=== PATIENT | female | born 1970 | race Two or more races ===

== ENCOUNTER 2020-06-29 11:05 | Outpatient (REF) | payer OTHER, SELFPAY ==
[2020-06-29 11:56] LABS: Hematocrit 40.4 % (37-47); Hemoglobin 13.6 g/dl (12.0-16.0); Mean Corpuscular HGB Conc 33.7 g/dl (31.0-35.0); Mean Corpuscular Hemoglobin 29.4 pg (27.0-33.0); Mean Corpuscular Volume 87.4 fL (80-98); Mean Platelet Volume 10.7 fL (9.4-12.3); Platelet Count 262 X10*3/uL (160-400); Red Blood Count 4.62 X10*6/uL (4.20-5.50); Red Cell Distribution Width 13.3 % (11.0-16.0); White Blood Count 5.1 X10*3/uL (4.8-10.8)
[2020-06-29 12:20] LABS: Alanine Aminotransferase 8 U/L (0-31); Albumin Level 4.2 g/dL (3.5-5.0); Alkaline Phosphatase 71 U/L (39-117); Anion Gap 10 (12-20); Aspartate Amino Transferase 9 U/L (5-31); Bilirubin Total 0.7 mg/dL (0.0-1.0); Blood Urea Nitrogen 13 mg/dL (9-16); Calcium 9.5 mg/dL (8.4-10.2); Carbon Dioxide 31 mmol/L (22-29); Chloride 102 mmol/L (96-108); Estimated Glomerular Filt Rate > 60; Glucose Random 97 mg/dL (60-115); Potassium 4.2 mmol/l (3.3-5.1); Sodium 139 mmol/L (135-145); Total Protein 7.1 g/dL (6.5-8.0)
== END 2020-06-29 11:06 | disposition home or self-care (01) ==
LOC: HO.LAB 11:05
PROVIDERS: PCP Family Medicine; Visit Provider Nurse Practitioner Family
DX: Z12.11 Encounter for screening for malignant neoplasm of colon (principal)
CPT/HCPCS: 36415; 80053; 85027

== ENCOUNTER 2020-07-15 09:23 | Day surgery (SDC) | payer OTHER, SELFPAY ==
--- NOTE | 2020-07-14 13:49 | P.CONAN_ITS ---
Documented by User: Carley Box 07/14/20 13:53 HPI - Anesthesia Eval Consult details Narrative: 50yo F for Colonoscopy [facility] Past Medical History Medical History Epilepsy Migraine Family History Family History Father History of stroke History of diabetes mellitus Mother History of asthma Surgical History Surgical History History of arthroscopy of right shoulder Social History Social History Alcohol intake: never Smoking Status: Never smoker Use of substances other than those prescribed or required for medical reasons: No Substance Use Type: Marijuana Advance Directives: No Advance Directives Information Provided: Yes Meds Allergies Allergy/AdvReac Type Severity Reaction Status Date / Time No Known Allergies Allergy Verified 07/09/20 13:43 Home Medications Medication Instructions Recorded Confirmed Type sumatriptan succinate 25 mg tablet 25 mg PO DAILY PRN tab 05/24/20 07/09/20 History propranolol 1 tab PO BID 07/09/20 07/09/20 History sertraline 1 tab PO DAILY 07/09/20 07/09/20 History Exam Exam Date and Time: July 14, 2020 1349 Pertinent Lab Results Pertinent Lab Results: Laboratory Tests 06/29/20 06/29/20 11:20 11:20 WBC 5.1 Hgb 13.6 Hct 40.4 Plt Count 262 Sodium 139 Potassium 4.2 Chloride 102 Carbon Dioxide 31 H BUN 13 Creatinine 0.76 Assessment and Plan Assessment Anesthesia Assessment: Chart Reviewed Documented by User: Marci Alicia 07/15/20 10:34 [facility] Past Medical History Medical History Epilepsy Migraine Family History Family History Father History of stroke History of diabetes mellitus Mother History of asthma Surgical History Surgical History History of arthroscopy of right shoulder Social History Social History Alcohol intake: never Smoking Status: Never smoker Use of substances other than those prescribed or required for medical reasons: No Substance Use Type: Marijuana Advance Directives: No Advance Directives Information Provided: Yes Meds Allergies Allergy/AdvReac Type Severity Reaction Status Date / Time No Known Allergies Allergy Verified 07/09/20 13:43 Home Medications Medication Instructions Recorded Confirmed Type sumatriptan succinate 25 mg tablet 25 mg PO DAILY PRN tab 05/24/20 07/09/20 History propranolol 1 tab PO BID 07/09/20 07/09/20 History sertraline 1 tab PO DAILY 07/09/20 07/09/20 History Exam Airway Mallampati Class: II TM Dist: >3cm Neck ROM: Full Loose/Missing/Broken Teeth: No Heart: RRR Lungs: CTA Assessment and Plan Assessment Anesthesia Assessment: Anesthesia Plan Discussed and Chart Reviewed Final Anesthetic Review NPO: Yes ASA Class: II Final Preanesthetic Review: Meds/Allgs Chart Reviewed, Consent Obtained/Reviewed and Anes Risks/Benef Reviewed Patient Risk: Low Procedure Risk: Low Anesthetic Plan Anesthetic Plan: MAC: Disposition: Standard PACU
[2020-07-15 09:51] VITALS: BP 94/54; PULSE 80; RESP 16; TEMP 36.5; O2SAT 99; BMI 27.1
[2020-07-15] MEDS: Lactated Ringers 1,000 ML 100 ML IVCONT (10:04)
--- NOTE | 2020-07-15 10:23 | MHC.SHP ---
Pre-Procedural Eval Section A The patient is an INPATIENT: No Section B Chief Complaint: Screening Details of Present Illness: Colon cancer screening, Mother hx of colon polyps. Relevant Family History (Specify if Yes): Yes Relevant Social History: None Present Medications: see Short Stay Collaborative assessment Medical History: Significant History (seizure, Migraine) History of Previous Operations: No relevant previous surgery Allergies: Allergies Allergy/AdvReac Type Severity Reaction Status Date / Time No Known Allergies Allergy Verified 07/09/20 13:43 Review of Systems Sugical H&P ROS: Negative: Constitution, Cardiovascular, Respiratory and Gastrointestinal Exam Surgical H&P Exam: Normal: HEENT, Normal: Heart, Normal: Lungs, Normal: Extremities and Normal: Abdomen Exam Comment: No changes since preop H&P Plan Diagnosis/Plan: Unchanged I have reviewed the history and physical and performed a pertinent physical examination on my patient. No changes have occurred unless specified. yes
--- NOTE | 2020-07-15 10:35 | HO.ANESPROP2 ---
FORMERLY [facility], LATER [facility] Past Medical History Medical History Epilepsy Migraine Family History Family History Father History of stroke History of diabetes mellitus Mother History of asthma Surgical History Surgical History History of arthroscopy of right shoulder Social History Social History Alcohol intake: never Smoking Status: Never smoker Use of substances other than those prescribed or required for medical reasons: No Substance Use Type: Marijuana Advance Directives: No Advance Directives Information Provided: Yes Meds Allergies Allergy/AdvReac Type Severity Reaction Status Date / Time No Known Allergies Allergy Verified 07/09/20 13:43 Home Medications Medication Instructions Recorded Confirmed Type sumatriptan succinate 25 mg tablet 25 mg PO DAILY PRN tab 05/24/20 07/09/20 History propranolol 1 tab PO BID 07/09/20 07/09/20 History sertraline 1 tab PO DAILY 07/09/20 07/09/20 History Exam Exam Date and Time: July 15, 2020 1035 Height,Weight and Vital Signs: Height 5 ft 3 in Weight 69.4 kg Last Vital Signs Temp 97.7 F 07/15/20 09:51 Pulse 80 07/15/20 09:51 Resp 16 07/15/20 09:51 BP 94/54 L 07/15/20 09:51 Pulse Ox 99 07/15/20 09:51
[2020-07-15 11:05] VITALS: BP 89/50; PULSE 77; RESP 18; TEMP 36.6; O2SAT 95
[2020-07-15 11:06] VITALS: BP 88/56
[2020-07-15 11:11] VITALS: BP 97/60
[2020-07-15 11:20] VITALS: BP 97/60; PULSE 66; RESP 18; O2SAT 98
[2020-07-15 11:35] VITALS: BP 103/62; PULSE 76; RESP 18; O2SAT 97
--- NOTE | 2020-07-15 12:32 | HO.POSTANES ---
Post Anesthesia Evaluation Post Anesthesia Evaluation Vital Signs: Vital Signs Temp Pulse Resp BP Pulse Ox 07/15/20 11:35 76 18 103/62 97 07/15/20 11:20 66 18 97/60 98 07/15/20 11:11 97/60 07/15/20 11:06 88/56 L 07/15/20 11:05 97.8 F 77 18 89/50 L 95 07/15/20 09:51 97.7 F 80 16 94/54 L 99 Anesthesia: Monitored Mental Status: Awake Pain Control: Satisfactory Nausea/Vomiting: None Hydration: Adequate Anesthesia-Related Issues: No Anes. Related Issues
--- NOTE | 2020-07-15 18:21 | OP_ITS ---
SURGEON: Nelly Plasencia MD PREOPERATIVE DIAGNOSIS: Colon cancer screening. POSTOPERATIVE DIAGNOSIS: PROCEDURE PERFORMED: Colonoscopy with excisional polypectomy. ESTIMATED BLOOD LOSS: Less than 5 mL. COMPLICATIONS: No complications. ANESTHESIA: Monitored. ANESTHESIOLOGIST: Dr. Alicia ASSISTANTS: No sales assistant. SPECIMENS: Specimen removed; polyp at 60 cm. The patient is a 50-year-old female, who is presented for colon cancer screening, [id number]. PRIMARY CARE PROVIDER: Not listed at the moment of dictation. POSTOPERATIVE DIAGNOSES: Colonic polyp, internal hemorrhoids 0 to 1+. BUILDING GUARD DEPUTY SHERIFF: Dr. Plasencia. CONDITION: Postprocedure, stable. FINDINGS: Digital rectal exam revealed no specific changes. Video colonoscope was introduced without difficulty. It was navigated into the rectosigmoid area. Prep was good. There was residual fluid, which required some increased suctioning and flushing. I switched off and on with air versus CO2 insufflation to get adequate distention. The patient is petite and her colon is somewhat convoluted due to the compactness of her abdomen. I did successfully get to the cecum. Appendiceal orifice was seen. There was a polyp identified on the way in at 60 cm and this was removed at that time and submitted as the only specimen on withdrawal. Good rotational views. No additional lesions seen. Anorectal verge was clear. PLAN: I spoke to the patient after the procedure, explained that she will be on a 5-year recall. Endoscopically, this is a tubular adenoma. I explained the evolution of colon cancer as best we know it in the majority of individuals from diminutive polyp, smaller polyp, then larger polyps with potenttial for change into colon cancer. She understood this. She will be seen in followup if she has any further questions. GRAFT OR IMPLANTS: No grafts or implants. Nelly Plasencia MD MEN/MODL / [id number] PADMINI
== END 2020-07-15 12:32 | disposition home or self-care (01) ==
PROVIDERS: PCP Family Medicine; Visit Provider Internal Medicine Gastroenterology
PROC: 0DJD8ZZ Inspection of Lower Intestinal Tract, Via Natural or Artificial Opening Endoscopic (ICD-10-PCS; CPT 45378; principal; 2020-07-15 10:30)
DX: Z12.11 Encounter for screening for malignant neoplasm of colon (principal); D12.6 Benign neoplasm of colon, unspecified; K64.8 Other hemorrhoids
CPT/HCPCS: 45380; 88305

== ENCOUNTER → 2020-07-29 14:16 | Outpatient (BNVA) | payer OTHER, SELFPAY | PROVIDERS: PCP Family Medicine; Visit Provider Nurse Practitioner Family | DX: Z76.89 Persons encountering health services in other specified circumstances (principal) ==

== ENCOUNTER → 2020-09-29 15:52 | Outpatient (BNVA) | payer OTHER, SELFPAY | PROVIDERS: Visit Provider Obstetrics & Gynecology ==

== ENCOUNTER 2020-10-04 16:23 | Outpatient (REF) | payer OTHER, SELFPAY ==
[2020-10-06 09:47] LABS: C. trachomatis RNA TMA NOT DETECTED (NOT DETECTED); N. gonorrhoeae RNA TMA NOT DETECTED (NOT DETECTED)
[2020-10-07 19:12] LABS: HPV mRNA E6/E7 rflx Not Detected (Not Detected)
== END 2020-10-04 16:24 | disposition home or self-care (01) ==
LOC: HO.LAB 16:23
PROVIDERS: Visit Provider Obstetrics & Gynecology
DX: Z12.4 Encounter for screening for malignant neoplasm of cervix (principal); Z11.51 Encounter for screening for human papillomavirus (HPV); Z11.3 Encounter for screening for infections with a predominantly sexual mode of transmission; Z20.2 Contact with and (suspected) exposure to infections with a predominantly sexual mode of transmission
CPT/HCPCS: 36415; 87491; 87591; 87624; 88142; J7298

== ENCOUNTER 2020-10-11 13:35 | Outpatient (REF) | payer OTHER, SELFPAY ==
--- NOTE | ~2020-10-11 | US_ITS ---
EXAMINATION: ULTRASOUND PELVIS COMPLETE CLINICAL INFORMATION: Pelvic plane with bleeding. COMPARISON: None TECHNIQUE: Transabdominal and transvaginal imaging of the pelvis was performed. FINDINGS: The uterus is retroverted measuring 6.8 cm in length, 4.1 cm in AP and 4.9 cm in transverse dimension. There is an IUD slightly low-lying within the endometrial canal. No focal lesion seen. There are multiple anechoic nabothian cysts seen in the cervix. Right ovary measures 2.37 x 1.07 x 1.45 cm and volume 1.93 mL. No focal lesion seen. Previously it measured 2.6 x 1.0 x 1.6 cm and volume 2.2 mL. The left ovary measures 2.05 x 1.42 x 1.55 cm and volume 2.36 mL. Previously left ovary measured 2.3 x 1.7 x 2.6 cm and volume 5.5 mL. There is no free fluid in the cul-de-sac. US/US transvaginal IMPRESSION: 1. Slightly low-lying IUD within the uterus. 2. Simple nabothian cysts in the cervix. 3. Ovaries are unremarkable.
--- NOTE | ~2020-10-11 | US_ITS ---
EXAMINATION: ULTRASOUND PELVIS COMPLETE CLINICAL INFORMATION: Pelvic plane with bleeding. COMPARISON: None TECHNIQUE: Transabdominal and transvaginal imaging of the pelvis was performed. FINDINGS: The uterus is retroverted measuring 6.8 cm in length, 4.1 cm in AP and 4.9 cm in transverse dimension. There is an IUD slightly low-lying within the endometrial canal. No focal lesion seen. There are multiple anechoic nabothian cysts seen in the cervix. Right ovary measures 2.37 x 1.07 x 1.45 cm and volume 1.93 mL. No focal lesion seen. Previously it measured 2.6 x 1.0 x 1.6 cm and volume 2.2 mL. The left ovary measures 2.05 x 1.42 x 1.55 cm and volume 2.36 mL. Previously left ovary measured 2.3 x 1.7 x 2.6 cm and volume 5.5 mL. There is no free fluid in the cul-de-sac. US/US pelvic complete IMPRESSION: 1. Slightly low-lying IUD within the uterus. 2. Simple nabothian cysts in the cervix. 3. Ovaries are unremarkable.
== END 2020-10-11 13:36 | disposition home or self-care (01) ==
LOC: HO.US 13:35
PROVIDERS: PCP Internal Medicine; Visit Provider Obstetrics & Gynecology
DX: R10.2 Pelvic and perineal pain (principal); N88.8 Other specified noninflammatory disorders of cervix uteri; Z97.5 Presence of (intrauterine) contraceptive device
CPT/HCPCS: 76830; 76856

== ENCOUNTER → 2020-10-19 12:05 | Outpatient (BNVA) | payer OTHER, SELFPAY | PROVIDERS: PCP Internal Medicine; Visit Provider Obstetrics & Gynecology ==

== ENCOUNTER 2021-04-18 11:51 | Outpatient (REF) | payer OTHER, SELFPAY ==
[2021-04-18 12:06] VITALS: BP 105/66; PULSE 79; RESP 16; TEMP 36.7; O2SAT 99
[2021-04-18 12:07] VITALS: BMI 28.3
[2021-04-18 13:32] VITALS: BP 114/69; PULSE 71; RESP 16; O2SAT 97
== END 2021-04-18 11:52 | disposition home or self-care (01) ==
LOC: HO.MS 11:51
PROVIDERS: PCP Family Medicine; Visit Provider Ophthalmology
PROC: (CPT 67801; principal; 2021-04-18 16:00)
DX: H00.11 Chalazion right upper eyelid (principal); H00.14 Chalazion left upper eyelid; Z79.899 Other long term (current) drug therapy
CPT/HCPCS: 67801; 67800

== ENCOUNTER 2022-09-02 07:14 | Outpatient (REF) | payer OTHER, SELFPAY ==
[2022-09-02 08:00] LABS: Appearance Urine Clear; Color Urine Yellow; Glucose Urine UA Negative (Negative); Leukocyte Esterase Urine Negative (Negative); Nitrite Urine Negative (Negative); PH 5.5 (5.0-9.0); Specific Gravity - Urine 1.025 (1.005-1.025); UMIC TRIGGER UA YES; Urine Blood Trace (Negative); Urine Ketones Negative (Negative); Urine Protein Negative (Neg-Trace)
[2022-09-02 08:16] LABS: Bacteria Urine None Seen (None Seen); Hyaline Casts Urine 0-2 /LPF (0-2); RBC Urine 0-2 /HPF (0-2); Squamous Epithelial Cell Urine 0-2 /HPF (0-2); WBC Urine 0-5 /HPF (0-5)
[2022-09-02 08:39] LABS: Alanine Aminotransferase 6 U/L (0-31); Albumin Level 4.1 g/dL (3.5-5.0); Alkaline Phosphatase 78 U/L (39-117); Anion Gap 14 (12-20); Aspartate Amino Transferase 9 U/L (5-31); Bilirubin Total 0.7 mg/dL (0.0-1.0); Blood Urea Nitrogen 14 mg/dL (9-16); Calcium 9.2 mg/dL (8.4-10.2); Carbon Dioxide 24 mmol/L (22-29); Chloride 106 mmol/L (96-108); Cholesterol 180 mg/dL; Estimated Glomerular Filt Rate > 60; Glucose Fasting 96 mg/dL (60-99); HDL Cholesterol 34 mg/dL; LDL Cholesterol Calculated 129 mg/dl; Potassium 4.1 mmol/L (3.3-5.1); Sodium 140 mmol/L (135-145); Total Protein 6.6 g/dL (6.5-8.0); Triglycerides 86 mg/dL
[2022-09-02 08:55] LABS: TSH reflex Free T4 1.71 uIU/mL (0.32-4.0)
== END 2022-09-02 07:15 | disposition home or self-care (01) ==
LOC: HO.LAB 07:14
PROVIDERS: PCP Family Medicine; Visit Provider Family Medicine
DX: Z00.00 Encounter for general adult medical examination without abnormal findings (principal)
CPT/HCPCS: 36415; 80053; 80061; 81001; 81003; 84443

== ENCOUNTER 2023-04-09 14:29 | Outpatient (AMB) | payer OTHER, SELFPAY ==
[2023-04-09 14:35] VITALS: BP 110/58; PULSE 78; O2SAT 98; BMI 26.6
--- NOTE | 2023-04-09 14:35 | MHC.PC.OV ---
Vital Signs 04/09/23 14:35 Height 5 ft 3 in Weight 150 lb BMI 26.6 BP 110/58 L Blood Pressure Location Lt brachial Position Sitting Pulse 78 Pulse Source Pulse Oximeter Pulse Oximetry (%) 98 Oxygen Delivery Method Room Air Intake Visit Reasons: f/u low hdl, cholesterol levels & chronic condit. Intake Note: Patient is following up on cholesterol. pain in right arm from anticubital area down. She states it's been bothering her since November. She states she has a hard time remembering things, and focusing on things. Allergies No Known Allergies Allergy (Verified 04/09/23 14:38) Tobacco use date assessed: 04/09/23 Dental Screening Dental Screen Date: 04/09/23 Did you have a dental visit in the last 12 months?: Yes Did you have a dental problem in the last 6 months where you did not have access to dental care?: No Was dental information given to patient?: Patient has dentist HPI f/u low hdl, cholesterol levels & chronic condit. HPI Details 52 y/o female presents to f/u lipids and chronic conditions. No recent lipid panel to review. She has not made an appt. with Sleep Medicine yet. Pt reports ongoing R forearm pain since November. Pt reports memory changes. [facility] Medical History Tubular adenoma Epilepsy Migraine Surgical History History of arthroscopy of right shoulder Family History Father History of stroke History of diabetes mellitus Mother History of asthma HTN (hypertension) Osteoarthritis Sister Vestibular vertigo Sister Vertigo, central Son No problems noted. Son No problems noted. Daughter No problems noted. Social History Housing: House Alcohol intake: never Patient Tobacco Use Status: Never used Tobacco e-Cigarette/Vaping Use: Never Used Substance Use Type: Marijuana service: No Current occupational status: employed Cognitive needs: No Hearing needs: No Vision needs: No Female Reproductive History Menstrual Age of Menarche: 13 Questionnaire Thrive Questionnaire Date Thrive assessed: 08/31/22 KIMBERLY-7 AMB Questionnaire KIMBERLY-7 Date KIMBERLY - 7 assessed: 08/31/22 Source: Developed by Drs. Siva Alcantar, Cecilia Llanes, Isra Beck and colleagues, with an educational susan from [employer]. Review of Systems Const Denies chills, Denies fatigue, Denies fever(s), Denies headache(s) and Denies weakness ENT Denies dizziness and Denies headache(s) Card Denies dyspnea Resp Denies cough, Denies dyspnea, Denies wheezing and Denies other (shortness of breath) Musc Details: R forearm pain Denies numbness and Denies tingling Neuro Denies dizziness, Denies headache(s), Denies numbness, Denies tingling and Denies weakness Psych Details: Memory changes Denies anxiety and Denies depression Endo Denies fatigue Aller/Immun Denies wheezing Physical exam (Primary Care) Vital Signs: Last Vital Signs Pulse 78 04/09/23 14:35 BP 110/58 L 04/09/23 14:35 Pulse Ox 98 04/09/23 14:35 Oxygen Delivery Method Room Air 04/09/23 14:35 BMI result Body Mass Index 26.6 Tobacco/Smoking Status: Tobacco use Status Tobacco use date assessed 04/09/23 04/09/23 14:42 Patient Tobacco Use Status Never used Tobacco 04/09/23 14:42 e-Cigarette/Vaping Use Never Used 04/09/23 14:42 Thrive Assessment: Date of Thrive Assessment Date Thrive assessed 08/31/22 04/09/23 14:42 Const General: well developed; No acute distress Nutritional Appearance: well nourished Orientation/consciousness: patient oriented x3 [facility] Head: Yes normocephalic and Yes atraumatic Eyes General: appearance normal, both eyes and all related structures Pupils: Equal, round and reactive pupils present EOM: EOMs intact bilaterally Resp Effort & Inspection: normal respiratory effort Neuro General: patient oriented x3 and gait normal Cranial nerves: Yes Equal, round and reactive pupils present Psych Affect: normal affect Assessment and Plan Assessment & Plan (1) Wrist pain: Code(s): M25.539 - Pain in unspecified wrist Plan: Right hand wrist and thumb pain Continue ice/heat She is using ibuprofen 400 mg twice a day and I encouraged her to increase this to 400 mg 3 times a day Referred back to ortho Check x-rays (2) Right forearm pain: Code(s): M79.631 - Pain in right forearm Plan: Right forearm and elbow pain Check x-ray NSAIDs as above (3) Fatigue: Code(s): R53.83 - Other fatigue Plan: Improved She has declined referral to Sleep Medicine (4) Hypersomnia: Code(s): G47.10 - Hypersomnia, unspecified Plan: Patient says this has improved with improved sleep (5) Memory changes: Code(s): R41.3 - Other amnesia Plan: Memory changes and difficulty with focus I'll refer her to neuropsych Reiterated that poor sleep may be affecting her memory and focus. Patient does not feel that her sleep issues are a problem at this time. (6) Low HDL (under 40): Code(s): E78.6 - Lipoprotein deficiency Plan: Following her cholesterol levels. She will get these drawn in the next week or so and we will follow-up by telemedicine in a couple of weeks Orders: Orders XR elbow RT min 3V Today M79.631 - Pain in right forearm XR hand RT 2V Today M79.641 - Pain in right hand Coding Level of Care Code Est Pt Level 4 (25155) Diagnoses Wrist pain M25.539 Right forearm pain M79.631 Fatigue R53.83 Hypersomnia G47.10 Memory changes R41.3 Low HDL (under 40) E78.6
== END 2023-04-09 15:06 | disposition home or self-care (01) ==
PROVIDERS: PCP Family Medicine; Visit Provider Family Medicine
DX: M25.539 Pain in unspecified wrist (principal); M79.631 Pain in right forearm; R53.83 Other fatigue; G47.10 Hypersomnia, unspecified; R41.3 Other amnesia; E78.6 Lipoprotein deficiency
CPT/HCPCS: 99214

== ENCOUNTER 2023-04-21 07:45 | Outpatient (REF) | payer OTHER, SELFPAY ==
--- NOTE | ~2023-04-21 | XR_ITS ---
EXAMINATION: XR ELBOW, RIGHT CLINICAL INFORMATION: Pain COMPARISON: None available. TECHNIQUE: AP, lateral, and oblique views of the right elbow. FINDINGS: No acute visible fracture or dislocation. Joint spaces and alignment are maintained. No large elbow joint effusion. Soft tissues are unremarkable. XR/XR elbow RT min 3V IMPRESSION: No acute visible fracture or dislocation.
--- NOTE | ~2023-04-21 | XR_ITS ---
EXAMINATION: XR HAND, RIGHT CLINICAL INFORMATION: Pain right hand COMPARISON: None available. TECHNIQUE: PA, lateral, and oblique views of the right hand. FINDINGS: No acute visible fracture or dislocation. Slight negative ulnar variance. Joint spaces and alignment are maintained. Soft tissues are unremarkable. XR/XR hand RT 2V IMPRESSION: 1. No acute visible fracture or dislocation. 2. Slight negative ulnar variance.
[2023-04-21 09:24] LABS: Alanine Aminotransferase 5 U/L (0-31); Albumin Level 4.1 g/dL (3.5-5.0); Alkaline Phosphatase 68 U/L (39-117); Anion Gap 15 (12-20); Aspartate Amino Transferase 10 U/L (5-31); Bilirubin Total 0.8 mg/dL (0.0-1.0); Blood Urea Nitrogen 7 mg/dL (9-16); Calcium 9.1 mg/dL (8.4-10.2); Carbon Dioxide 24 mmol/L (22-29); Chloride 106 mmol/L (96-108); Cholesterol 179 mg/dL (<200); Estimated Glomerular Filt Rate > 60; Glucose Fasting 90 mg/dL (60-99); HDL Cholesterol 41 mg/dL (>40); LDL Cholesterol Calculated 126 mg/dL (<100); Potassium 3.9 mmol/L (3.3-5.1); Sodium 141 mmol/L (135-145); Triglycerides 64 mg/dL (<150)
== END 2023-04-21 07:46 | disposition home or self-care (01) ==
LOC: HO.LAB 07:45
PROVIDERS: PCP Family Medicine; Visit Provider Family Medicine
DX: Z00.00 Encounter for general adult medical examination without abnormal findings (principal); M79.641 Pain in right hand; M79.631 Pain in right forearm; E78.6 Lipoprotein deficiency
CPT/HCPCS: 36415; 73080; 73120; 80053; 80061

== ENCOUNTER 2023-04-30 13:36 | Outpatient (AMB) | payer OTHER, SELFPAY ==
--- NOTE | 2023-04-30 13:32 | A.OFFPC_ITS ---
Intake Visit Reasons: f/u labs Intake Note: Patient is following up on her lab work today. Allergies No Known Allergies Allergy (Verified 04/30/23 13:33) Tobacco use date assessed: 04/30/23 Dental Screening Dental Screen Date: 04/30/23 Did you have a dental visit in the last 12 months?: Yes Did you have a dental problem in the last 6 months where you did not have access to dental care?: No Was dental information given to patient?: Patient has dentist HPI f/u labs HPI Details Telemedicine?encounter?to?follow-up?labs,?x-rays?of?hands?and?wrists?for?bilater al?arm?pain, and?follow-up?of?memory?changes. Lab?work?is?all?okay.??Lipids?are?within?normal?limits. Still?has?wrist?forearm?and?elbow?pain?bilaterally.??X-rays?are?unremarkable.??S he?has?an?appointment?with?Ortho?coming?up.??Offe red?occupational?therapy?but?patient?would?like?to?see?ortho?1st. Ongoing?memory?changes.??She?has?had?some?issue?with?fatigue?and?declined?sleep? medicine?referral.??Lab?work?unremarkable.??Has?not?h ad?CBC?or?iron?studies?and?would?like?these. [facility] Medical History Tubular adenoma Epilepsy Migraine Surgical History History of arthroscopy of right shoulder Family History Father History of stroke History of diabetes mellitus Mother History of asthma HTN (hypertension) Osteoarthritis Sister Vestibular vertigo Sister Vertigo, central Son No problems noted. Son No problems noted. Daughter No problems noted. Social History Housing: House Alcohol intake: never Patient Tobacco Use Status: Never used Tobacco e-Cigarette/Vaping Use: Never Used Substance Use Type: Marijuana service: No Current occupational status: employed Cognitive needs: No Hearing needs: No Vision needs: No Female Reproductive History Menstrual Age of Menarche: 13 Questionnaire Thrive Questionnaire Date Thrive assessed: 08/31/22 KIMBERLY-7 AMB Questionnaire KIMBERLY-7 Date KIMBERLY - 7 assessed: 08/31/22 Source: Developed by Drs. Siva Alcantar, Cecilia Llanes, Isra Beck and colleagues, with an educational susan from [employer]. Review of Systems Const Denies chills, Denies fatigue, Denies fever(s), Denies headache(s) and Denies weakness ENT Denies dizziness and Denies headache(s) Card Denies chest pain, Denies lightheadedness, Denies dyspnea and Denies other (Palpitations) Resp Denies cough, Denies dyspnea, Denies wheezing and Denies other ( shortness of breath) Musc Details: Bilateral?for?pain Denies numbness Neuro Denies dizziness, Denies headache(s), Denies numbness, Denies paresthesias and Denies weakness Psych Denies anxiety and Denies depression Endo Denies fatigue Aller/Immun Denies wheezing Physical exam (Primary Care) Tobacco/Smoking Status: Tobacco use Status Tobacco use date assessed 04/30/23 04/30/23 13:35 Patient Tobacco Use Status Never used Tobacco 04/30/23 13:35 e-Cigarette/Vaping Use Never Used 04/30/23 13:35 Thrive Assessment: Date of Thrive Assessment Date Thrive assessed 08/31/22 04/30/23 13:35 Const Other: Telemedicine?encounter.??Audio?only.??No?exam. Telehealth Telehealth Location of provider rendering services: practice address Location of patient: other Patient Identification confirmed using: Name, : Yes Telehealth method: voice only Patient verbally consented to treatment: Yes Patient verbally consented to billing insurance company: Yes Patient informed of any privacy concerns related to visit: Yes Minutes spent on Phone/Video with Pt.: 8 Assessment and Plan Assessment & Plan (1) Fatigue: Code(s): R53.83 - Other fatigue Plan: Patient?declines?sleep?medicine She requests checking CBC & Iron. Ordered. (2) Forearm tendonitis: Code(s): M77.8 - Other enthesopathies, not elsewhere classified Plan: f/u ortho (3) Memory changes: Code(s): R41.3 - Other amnesia Plan: Ongoing?memory?ch anges.??She?has?been?referred?to?neuropsychiatry?at?[facility].??I?gave?her?the?number? so?she?can?call?them?today. Will?also?ask?our?office?to?check?on?status. (4) Low HDL (under 40): Code(s): E78.6 - Lipoprotein deficiency Plan: HDL?is?within?normal?limits Orders: Orders Lipid Panel 2 Months Z00.00 - Encounter for general adult medical examination without abnormal findings Microalbumin, Random (w Creat) 2 Months I10 - Essential (primary) hypertension TSH reflex Free T4 2 Months Z00.00 - Encounter for general adult medical examin ation without abnormal findings UA and rflx microscopic 2 Months Z00.00 - Encounter for general adult medical examination without abnormal findings Complete Blood Count Auto Diff Today R53.83 - Other fatigue, Z00.00 - Encounter for general adult medical examination without abnormal findings IRON PROFILE Today R53.83 - Other fatigue Vitamin B12 and Folate Today E53.8 - Deficiency of other specified B group vitamins, R53.83 - Other fatigue TSH reflex Free T4 Today R53.83 - Other fatigue, Z00.00 - Encounter for general adult medical examination without abnormal findings Comprehensive Brothers. Panel Fast 2 Months Z00.00 - Encounter for general adult medical examination without abnormal findings Complete Blood Count Auto Diff 2 Months Z00.00 - Encounter for general adult medical examination without abnormal findings Coding Level of Care Code Tele Est Pt Level 2 (87801) Diagnoses Fatigue R53.83 Forearm tendonitis M77.8 Memory changes R41.3 Low HDL (under 40) E78.6
== END 2023-04-30 14:00 | disposition home or self-care (01) ==
LOC: HO.HMGFM 13:36
PROVIDERS: PCP Family Medicine; Visit Provider Family Medicine
DX: R53.83 Other fatigue (principal); M77.8 Other enthesopathies, not elsewhere classified; R41.3 Other amnesia; E78.6 Lipoprotein deficiency; Z82.0 Family history of epilepsy and other diseases of the nervous system
CPT/HCPCS: 99212

== ENCOUNTER 2023-09-28 09:19 | Outpatient (AMB) | payer OTHER, SELFPAY ==
[2023-09-28 09:35] VITALS: BP 101/60; PULSE 79; RESP 12; TEMP 36.7; O2SAT 99; BMI 26.6
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
== END 2023-09-28 10:04 | disposition home or self-care (01) ==
PROVIDERS: PCP Family Medicine; Visit Provider Nurse Practitioner Family
DX: M79.2 Neuralgia and neuritis, unspecified (principal)
CPT/HCPCS: 99215

== ENCOUNTER 2023-10-29 19:23 | Outpatient (REF) | payer OTHER, SELFPAY ==
--- NOTE | ~2023-10-29 | MR_ITS ---
EXAMINATION: MR CERVICAL SPINE WITHOUT CONTRAST CLINICAL INFORMATION: Neuralgia and neuritis. COMPARISON: No relevant prior imaging. TECHNIQUE: MRI of the cervical spine was obtained using routine sequences without contrast. FINDINGS: There is nonspecific reversal of the cervical lordosis. Alignment is otherwise normal. Vertebral body heights are preserved. There are type I degenerative endplate changes at C5-C6. There is loss of intervertebral disc height and T2 signal intensity at multiple levels related to disc degeneration. There is no canal compromise or cord compression. No abnormal intramedullary signal changes. The cervicomedullary junction is normal. Limited visualization of the intracranial anatomy reveals no abnormal finding. Occipital condyles and lateral C1 masses are intact. The atlantodental joint and both C1-C2 articular facets are unremarkable. At C2-C3 the annular contour is normal. No canal or neuroforaminal compromise. At C3-C4 there is a bulging disc. No canal stenosis. Uncovertebral joint spurring causes mild right neuroforaminal encroachment. At C4-C5 there is a bulging disc. No canal stenosis. Uncovertebral joint spurring and facet degenerative change causes mild bilateral neuroforaminal encroachment. At C5-C6 there is a bulging disc. No canal stenosis. Uncovertebral joint spurring and facet degenerative change causes severe right and moderate left neuroforaminal encroachment. At C6-C7 there is a bulging disc. No canal stenosis. Uncovertebral joint spurring and facet degenerative change causes mild right neuroforaminal encroachment. At C7-T1 the annular contour is normal. No canal or neuroforaminal compromise. Visualized soft tissues of the neck are normal. Vascular flow voids are grossly maintained. MR/MR cervical spine wo con IMPRESSION: There is multilevel degenerative spondylosis of the cervical spine. No canal compromise or cord compression. No abnormal intramedullary signal changes. There are varying degrees of neuroforaminal encroachment related to uncovertebral joint spurring and facet degenerative change as described above. For instance at C5-C6 there is severe right and moderate left neuroforaminal narrowing.
== END 2023-10-29 19:24 | disposition home or self-care (01) ==
LOC: HO.MRI 19:23
PROVIDERS: PCP Family Medicine; Visit Provider Nurse Practitioner Family
DX: M79.2 Neuralgia and neuritis, unspecified (principal)
CPT/HCPCS: 72141

== ENCOUNTER 2023-11-12 16:29 | Outpatient (AMB) | payer OTHER, SELFPAY ==
--- NOTE | 2023-11-12 16:23 | MHC.PC.OV ---
Intake Visit Reasons: Discuss MRI Results Intake Note: Patient is calling to iscuss MRI results today. Allergies No Known Allergies Allergy (Verified 11/12/23 16:24) Tobacco use date assessed: 11/12/23 Dental Screening Dental Screen Date: 09/28/23 HPI Discuss MRI Results HPI Details 53 y/o female presents to discuss cervical spine MRI results. MRI done 10/29/23. Per note: There is multilevel degenerative spondylosis of the cervical spine. No canal compromise or cord compression. No abnormal intramedullary signal changes. There are varying degrees of neuroforaminal encroachment related to uncovertebral joint spurring and facet degenerative change as described above. For instance at C5-C6 there is severe right and moderate left neuroforaminal narrowing. [facility] Medical History Tubular adenoma Epilepsy Migraine Surgical History History of arthroscopy of right shoulder Family History Father History of stroke History of diabetes mellitus Mother History of asthma HTN (hypertension) Osteoarthritis Sister Vestibular vertigo Sister Vertigo, central Son No problems noted. Son No problems noted. Daughter No problems noted. Social History Household Members: Family Housing: House 75 years or older and lives alone: No Alcohol intake: never Patient Tobacco Use Status: Never used Tobacco e-Cigarette/Vaping Use: Never Used Substance Use Type: Marijuana service: No Current occupational status: employed Cognitive needs: No Hearing needs: No Vision needs: No Female Reproductive History Menstrual Age of Menarche: 13 Questionnaire Thrive Questionnaire Date Thrive assessed: 08/31/22 KIMBERLY-7 AMB Questionnaire KIMBERLY-7 Date KIMBERLY - 7 assessed: 08/31/22 Source: Developed by Drs. Siva Alcantar, Cecilia Llanes, Isra Beck and colleagues, with an educational susan from [employer]. Review of Systems Const Denies chills, Denies fatigue, Denies fever(s), Denies headache(s) and Denies weakness ENT Denies dizziness and Denies headache(s) Card Denies dyspnea Resp Denies cough, Denies dyspnea, Denies wheezing and Denies other (shortness of breath) Musc Denies numbness and Denies tingling Neuro Denies dizziness, Denies headache(s), Denies numbness, Denies tingling and Denies weakness Psych Denies anxiety and Denies depression Endo Denies fatigue Aller/Immun Denies wheezing Physical exam (Primary Care) Tobacco/Smoking Status: Tobacco use Status Tobacco use date assessed 11/12/23 11/12/23 16:26 Patient Tobacco Use Status Never used Tobacco 11/12/23 16:26 e-Cigarette/Vaping Use Never Used 11/12/23 16:26 Thrive Assessment: Date of Thrive Assessment Date Thrive assessed 08/31/22 11/12/23 16:26 Telehealth Telehealth Location of provider rendering services: practice address Location of patient: address on file Patient Identification confirmed using: Name, : Yes Telehealth method: voice only Patient verbally consented to treatment: Yes Patient verbally consented to billing insurance company: Yes Patient informed of any privacy concerns related to visit: Yes Minutes spent on Phone/Video with Pt.: 8 Assessment and Plan Assessment & Plan (1) Radicular pain in right arm: Code(s): M79.2 - Neuralgia and neuritis, unspecified Plan: Moderate?to?severe foraminal?narrowing/encroachment?with?radicular?symptoms?in?right?arm Referred?to?new[facility] Call?or?return?to?office?if?symptoms?are?worsening Orders: Referrals Orthopedics Referral M79.2 - Neuralgia and neuritis, unspecified Coding Level of Care Code Tele Est Pt Level 2 (22823) Diagnoses Radicular pain in right arm M79.2
== END 2023-11-12 17:03 | disposition home or self-care (01) ==
LOC: HO.HMGFM 16:29
PROVIDERS: PCP Family Medicine; Visit Provider Family Medicine
DX: M79.2 Neuralgia and neuritis, unspecified (principal)
CPT/HCPCS: 99212

== ENCOUNTER 2024-01-01 06:30 | Outpatient (REF) | payer OTHER, SELFPAY ==
[2024-01-01 06:39] LABS: MANUAL DIFF FLAG NO
[2024-01-01 08:10] LABS: Basophils Percent Auto 0.5 % (0-2); Eosinophils Absolute Auto 0.1 X10*3/uL (0.0-0.4); Eosinophils Percent Auto 1.8 % (0-4); Hemoglobin 13.7 g/dl (12.0-16.0); Imm Gran Abs Auto 0.01 X10*3/uL (0.00-0.03); Imm Gran Pct Auto 0.2 % (0.0-0.4); Lymphocytes Absolute Auto 2.6 X10*3/uL (1.2-4.9); Lymphocytes Percent Auto 47.6 % (20-40); Mean Corpuscular HGB Conc 35.1 g/dl (31.0-35.0); Mean Corpuscular Hemoglobin 30.1 pg (27.0-33.0); Mean Corpuscular Volume 85.7 fL (80.0-98.0); Mean Platelet Volume 10.8 fL (9.4-12.3); Monocytes Absolute Auto 0.4 X10*3/uL (0.1-1.2); Monocytes Percent Auto 7.6 % (2-11); Neutrophils Absolute Auto 2.4 x10*3/uL (2.0-8.3); Neutrophils Percent Auto 42.3 % (45-73); Platelet Count 250 X10*3/uL (160-400); Red Blood Count 4.55 X10*6/uL (4.20-5.50); Red Cell Distribution Width 13.2 % (11.0-16.0); White Blood Count 5.6 X10*3/uL (4.8-10.8)
[2024-01-01 08:51] LABS: Appearance Urine Hazy; Color Urine Yellow; Glucose Urine UA Negative (Negative); Leukocyte Esterase Urine Moderate (2+) (Negative); Nitrite Urine Negative (Negative); Specific Gravity - Urine 1.025 (1.005-1.025); UMIC TRIGGER UA YES; Urine Blood Trace (Negative); Urine Ketones Negative (Negative); Urine Protein Negative (Neg-Trace)
[2024-01-01 09:07] LABS: Alanine Aminotransferase 7 U/L (0-31); Albumin Level 4.2 g/dL (3.5-5.0); Alkaline Phosphatase 66 U/L (39-117); Anion Gap 15 (12-20); Aspartate Amino Transferase 11 U/L (5-31); Bilirubin Total 0.9 mg/dL (0.0-1.0); Blood Urea Nitrogen 13 mg/dL (9-16); Calcium 9.3 mg/dL (8.4-10.2); Carbon Dioxide 24 mmol/L (22-29); Chloride 106 mmol/L (96-108); Cholesterol 171 mg/dL (<200); Estimated Glomerular Filt Rate > 60; Glucose Fasting 91 mg/dL (60-99); HDL Cholesterol 43 mg/dL (>40); Iron 117 mcg/dL (30-160); LDL Cholesterol Calculated 116 mg/dL (<100); Percent Iron Saturation 43 % (15-50); Potassium 3.9 mmol/L (3.3-5.1); Sodium 141 mmol/L (135-145); TSH reflex Free T4 2.73 uIU/mL (0.32-4.0); Total Iron Binding Capacity 271 mcg/dL (228-428); Total Protein 7.2 g/dL (6.5-8.0); Triglycerides 61 mg/dL (<150); Unsaturated Iron Binding 154 ug/dL
[2024-01-01 09:13] LABS: Vitamin B12 1427 pg/mL (200-900)
[2024-01-01 09:37] LABS: Microalbum/Creatinine Ratio Ur 6.2 ug/mg cr (<30)
[2024-01-01 10:45] LABS: Bacteria Urine 4+ (None Seen); Hyaline Casts Urine 0-2 /LPF (0-2)
== END 2024-01-01 06:31 | disposition home or self-care (01) ==
LOC: HO.LAB 06:30
PROVIDERS: PCP Family Medicine; Visit Provider Family Medicine
DX: Z00.00 Encounter for general adult medical examination without abnormal findings (principal); R53.83 Other fatigue; I10 Essential (primary) hypertension; E53.8 Deficiency of other specified B group vitamins
CPT/HCPCS: 36415; 80053; 80061; 81001; 82043; 82570; 82607; 82746; 83540; 84443; 85025

== ENCOUNTER 2024-01-02 15:42 | Outpatient (AMB) | payer OTHER, SELFPAY ==
[2024-01-02 16:10] VITALS: BP 114/70; PULSE 70; O2SAT 99; BMI 27.5
--- NOTE | 2024-01-02 16:10 | A.OFFPC_ITS ---
Vital Signs 01/02/24 16:10 Height 5 ft 3 in Weight 155 lb BMI 27.5 BP 114/70 Blood Pressure Location Lt brachial Position Sitting Pulse 70 Pulse Source Pulse Oximeter Pulse Oximetry (%) 99 Oxygen Delivery Method Room Air Intake Visit Reasons: Annual physical Intake Note: Patient is here for her physical today. Allergies No Known Allergies Allergy (Verified 01/02/24 16:13) Medication List - Last Reconciled 01/02/24 by Cesar Chavez MD levonorgestrel (Mirena) intrauterine Tobacco use date assessed: 01/02/24 Dental Screening Dental Screen Date: 09/28/23 HPI Annual physical HPI Details 53 y/o female presents for a CPE with f/ u labs and health maintenance. Labs were drawn 01/01/24. Reviewed labs with pt. Triglycerides 61. TC 171. LDL 116. HDL 43. A1c today 01/02/24 4.5%. Pt reports ongoing cervicalgia/neuralgia and states she is under significant pain today. [facility] Medical History Tubular adenoma Epilepsy Migraine Surgical History History of arthroscopy of right shoulder Family History Father History of stroke History of diabetes mellitus Mother History of asthma HTN (hypertension) Osteoarthritis Sister Vestibular vertigo Sister Vertigo, central Son No problems noted. Son No problems noted. Daughter No problems noted. Social History Household Members: Family Housing: House 75 years or older and lives alone: No Alcohol intake: never Patient Tobacco Use Status: Never used Tobacco e-Cigarette/Vaping Use: Never Used Substance Use Type: Marijuana service: No Current occupational status: employed Cognitive needs: No Hearing needs: No Vision needs: No Female Reproductive History Menstrual Age of Menarche: 13 Questionnaire PHQ-9 Over the last 2 weeks, how often have you been bothered by any of the following problems? 1. Little interest or pleasure in doing things: several days 2. Feeling down, depressed, or hopeless: several days 3. Trouble falling or staying asleep, or sleeping too much: several days 4. Feeling tired or having little energy: nearly every day 5. Poor appetite or overeating: several days 6. Feeling bad about yourself - or that you are a failure or have let yourself or your family down: not at all 7. Trouble concentrating on things, such as reading the newspaper or watching television: several days 8. Moving or speaking so slowly that other people could have noticed. Or the opposite - being so fidgety or restless that you have been moving around a lot more than usual: not at all 9. Thoughts that you would be better off or of hurting yourself in some way: not at all Total score: 8 Depression Screening Interpretation: Positive Depression Screening Done: Yes 20273 - PHQ-9 Billing: Yes Source: Developed by Drs. Siva Alcantar, Isra Dent and colleagues, with an educational susan from [employer]. Thrive Questionnaire Date Thrive assessed: 08/31/22 AUDIT C Alcohol Use Questionnaire (AUDIT-C) 1. How often do you have a drink containing alcohol?: Never 3. How often do you have six or more drinks on one occasion?: Never Total Score: 0 KIMBERLY-7 AMB Questionnaire KIMBERLY-7 Date KIMBERLY - 7 assessed: 01/02/24 Feeling nervous, anxious, or on edge: 0 = Not at all Not being able to stop or control worryin = Not at all Worrying too much about different things: 0 = Not at all Trouble relaxin = Not at all Being so restless that it is hard to sit still: 0 = Not at all Becoming easily annoyed or irritable: 0 = Not at all Feeling afraid as if something awful might happen: 0 = Not at all Total KIMBERLY-7 score (0-4 normal; 5-9 mild; 10-14 moderate; 15-21 severe): 0 Source: Developed by Drs. Siva Alcantar, Isra Dent and colleagues, with an educational susan from [employer]. KIMBERLY-7 Assessment Billing KIMBERLY-7 Assessment Tool: KIMBERLY-7 Assessment [id number] Review of Systems Const Reports fatigue, Denies headache(s) and Denies weakness Eyes Denies change in vision ENT Denies dizziness, Denies headache(s), Denies hearing loss, Denies nasal congestion, Denies sinus pain, Denies sinus pressure and Denies sore throat Card Denies chest pain, Denies lightheadedness, Denies dyspnea and Denies other (palpitations) Resp Denies cough, Denies dyspnea and Denies wheezing GI Denies abdominal pain, Denies melena, Denies hematochezia, Denies change in bowel habits, Denies dyspepsia and Denies nausea Denies hematuria and Denies dysuria Musc Denies abnormal gait, Denies myalgias, Denies arthralgias, Denies numbness and Denies tingling Skin/Breast Denies rash, Denies unusual bruising and Denies wounds Neuro Denies abnormal gait, Denies dizziness, Denies headache(s), Denies memory loss, Denies numbness, Denies Sensory deficit (Neuro), Denies tingling and Denies weakness Psych Reports anxiety, Reports depression and Denies memory loss Endo Reports fatigue Davin/Lymph Denies easy bleeding and Denies easy bruising Aller/Immun Denies wheezing Physical exam (Primary Care) BMI result Body Mass Index 27.5 Tobacco/Smoking Status: Tobacco use Status Tobacco use date assessed 01/02/24 01/02/24 16:15 Patient Tobacco Use Status Never used Tobacco 01/02/24 16:15 e-Cigarette/Vaping Use Never Used 01/02/24 16:15 PHQ-9: PHQ-9 Score PHQ-9: Total score 8 01/02/24 16:20 Depression Screening Interpretation: Positive Thrive Assessment: Date of Thrive Assessment Date Thrive assessed 08/31/22 01/02/24 16:15 Const General: no acute distress, well developed, alert and awake Nutritional Appearance: well nourished Orientation/consciousness: patient oriented x3 HENMT Head: Yes normocephalic and Yes atraumatic Ears: hearing grossly normal bilaterally and TM's normal bilaterally General nose exam: Normal external nose present and Normal nares present Mouth: Normal oral and palatal mucosa present and moist mucous membranes Teeth and gingiva: dentition normal Throat: Yes posterior oropharynx normal Eyes General: appearance normal, both eyes and all related structures Pupils: Equal, round and reactive pupils present and Pupil accommodation reflex normal EOM: EOMs intact bilaterally Neck Neck: Yes normal visual inspection, Yes no lymphadenopathy and Yes trachea midline Thyroid: Thyroid normal Carotids: no bruits Lymphatic: no lymphadenopathy noted Chest Chest palpation & inspection: normal inspection of the chest Resp Effort & Inspection: normal respiratory effort Auscultation: clear to auscultation bilaterally Cardio Rate: regular rate Rhythm: regular rhythm Heart sounds: S1 normal heart sound present, S2 normal heart sound present, no gallops, no murmurs and no rubs Bruits: no abdominal aortic bruits and no carotid bruits GI Palpation (GI): No Abdominal aortic bruit present, Soft to palpation, nontender, No hepatosplenomegaly present and No Rebound tenderness present Auscultation: normal bowel sounds General: Yes no CVA tenderness Back/Spine/Pelvis Back: no CVA tenderness Cervical Spine: cervical ROM normal and No Cervical spine tenderness Thoracic/Lumbar Spine: thoraco-lumbar ROM normal, No pain with thoraco-lumbar ROM, No thoracic spinal tenderness and No lumbar spinal tenderness Skin Lesions: no lesions Rashes: no rashes Trauma: no lacerations or abrasions Wounds: no wounds Nails: normal Neuro General: patient oriented x3 Cranial nerves: Yes Equal, round and reactive pupils present Cognition (Neuro): normal cognition Gait exam (Neuro): Normal gait present Motor exam (neuro): 5/5 motor strength present throughout Sensory Exam: No Sensory deficit (Neuro) Deep tendon reflexes (DTR's): Right patellar reflex intensity grade: 2+ and Left patellar reflex intensity grade: 2+ Extrem General: Yes normal to inspection and No edema Psych Appearance: grossly normal Affect: normal affect Attitude: cooperative Thought process: Normal thought process present Assessment and Plan Assessment & Plan (1) Adult general medical exam: Code(s): Z00.00 - Encounter for general adult medical examination without abnormal findings Plan: 53-year-old?female?presents?for?complete?physical?exam Encouraged?healthy?diet?with?active?lifestyle?and?exercise?as?tolerated (2) Radicular pain in right arm: Code(s): M79.2 - Neuralgia and neuritis, unspecified Plan: Ongoing?and?worsening?symptoms. MRI?shows?multilevel?degenerative?changes?with?C5-C6?severe?foraminal?narrowing Symptoms?are?worse?when?moving?or?turning?her?head?and?this?is?necessa ry?at?work?as?she?has?a?workstation?with?3?screen Will?write?her?a?letter?requesting?accommodations?to?her?work?environment. Will?give?her?a?short?trial?of?prednisone?and?she?can?follow?this?with?quinones xicam?for?pain?relief?and?anti-inflammatory?properties. Will?also?give?her?some?gabapentin?for?neuropathic?symptoms/pain Patient?will?consider?FMLA?intermittent?leave?and?she?can?bring?me?forms?to?f ill?out?for?this?as?I?agree?with?this She?has?an?upcoming?appointment?with?new?[facility],?December? (3) Elevated LDL cholesterol level: Code(s): E78.00 - Pure hypercholesterolemia, unspecified Plan: Encouraged?diet?low?in?saturated?fats?and?cholesterol (4) Fatigue: Code(s): R53.83 - Other fatigue Plan: Ongoing?fatigue.??Patient?does?note?that?she?wakes?up?frequently? and?I?advised?a?sleep?study.??She?has?declined?this She?had?requested?testing?for?anemia?but?her?H&H?as?well?as?iron?studies?are?fin e. Cervicalgia?and?cervical?radiculopathy?can?also?result?in?some?fa tigue?and?she?has?an?upcoming?appointment?with?Ortho?as?well?as?the?above?mentio noah?treatments. If?not?improved?with?intervention?from?Ortho,?patient?agrees?to?readdress?the?id ea?of?a?referral?to?Sleep?Medicine. (5) Mild depression: Code(s): F32.A - Depression, unspecified Plan: Mild?depression?by?PHQ-9. No?thoughts?of?self-harm We?can?follow-up?on?this?at?next?appointment. (6) Cervicalgia: Code(s): M54.2 - Cervicalgia Plan: As?above (7) Breast cancer screening by mammogram: Code(s): Z12.31 - Encounter for screening mammogram for malignant neoplasm of breast Plan: Due?for?mammogram-ordered (8) Screen for colon cancer: Code(s): Z12.11 - Encounter for screening for malignant neoplasm of colon Plan: [place]in[place]2020[place] [place]and?recommended?follow-up?in?5?years;?2024 Currently?up-to-date (9) Screening for cervical cancer: Code(s): Z12.4 - Encounter for screening for malignant neoplasm of cervix Plan: Followed?by?[facility] Follow-up?as?recommended Orders: Orders MM tomosynthesis screening BI Today Z12.31 - Encounter for screening mammogram for malignant neoplasm of breast Medications: New gabapentin 300 mg PO BID 30 days 60 caps 1RF prednisone 40 mg (2 x 20 mg) PO DAILY 5 days 10 tabs 0RF meloxicam 15 mg PO DAILY 30 days 30 tabs 2RF Coding Level of Care Code Est Pt Level 3 (62889) Est Pt Prev Care 40-64y(35698) Diagnoses Adult general medical exam Z00.00 Radicular pain in right arm M79.2 Elevated LDL cholesterol level E78.00 Fatigue R53.83 Mild depression F32.A Cervicalgia M54.2 Breast cancer screening by mammogram Z12.31 Screen for colon cancer Z12.11 Screening for cervical cancer Z12.4 Additional Codes KIMBERLY-7 Assessment Billing - KIMBERLY-7 Assessment Tool: KIMBERLY-7 Assessment [id number] ([id number])
== END 2024-01-02 16:54 | disposition home or self-care (01) ==
PROVIDERS: PCP Family Medicine; Visit Provider Family Medicine
DX: Z00.00 Encounter for general adult medical examination without abnormal findings (principal); M54.2 Cervicalgia; R53.83 Other fatigue; F32.A Depression, unspecified; M79.2 Neuralgia and neuritis, unspecified; E78.00 Pure hypercholesterolemia, unspecified; Z12.31 Encounter for screening mammogram for malignant neoplasm of breast; Z12.11 Encounter for screening for malignant neoplasm of colon
CPT/HCPCS: 99213; 99396

== ENCOUNTER 2024-02-05 16:30 | Outpatient (AMB) | payer OTHER, SELFPAY ==
--- NOTE | 2024-02-05 16:37 | MHC.PC.OV ---
Vital Signs 02/05/24 16:39 Height 5 ft 3 in Weight 150 lb 8 oz BMI 26.7 BP 100/62 Blood Pressure Location Lt brachial Position Sitting Pulse 72 Pulse Source Pulse Oximeter Pulse Oximetry (%) 100 Oxygen Delivery Method Room Air Intake Visit Reasons: 1 month F/U Cervical Radiculopathy Intake Note: Patient is here to follow up on her back and neck, shoulder and hand on the right side, still not feeling good. She was taking Celebrex, stating that it is not helping her. Allergies No Known Allergies Allergy (Verified 02/05/24 16:45) Tobacco use date assessed: 01/02/24 Dental Screening Dental Screen Date: 09/28/23 HPI 1 month F/U Cervical Radiculopathy HPI Details 53 y/o female presents to f/u cervical radiculopathy. Recent imaging showed some narrowing but no compression. She notes she had been recommended physical therapy but had not been able to do this yet as she states she has been having difficulty with paperwork. FORMERLY [facility], [facility] Medical History Tubular adenoma Epilepsy Migraine Surgical History History of arthroscopy of right shoulder Family History Father History of stroke History of diabetes mellitus Mother History of asthma HTN (hypertension) Osteoarthritis Sister Vestibular vertigo Sister Vertigo, central Son No problems noted. Son No problems noted. Daughter No problems noted. Social History Household Members: Family Housing: House 75 years or older and lives alone: No Alcohol intake: never Patient Tobacco Use Status: Never used Tobacco e-Cigarette/Vaping Use: Never Used Substance Use Type: Marijuana service: No Current occupational status: employed Cognitive needs: No Hearing needs: No Vision needs: No Female Reproductive History Menstrual Age of Menarche: 13 Questionnaire Thrive Questionnaire Date Thrive assessed: 08/31/22 KIMBERLY-7 AMB Questionnaire KIMBERLY-7 Date KIMBERLY - 7 assessed: 01/02/24 Source: Developed by Drs. Siva Alcantar, Cecilia Llanes, Isra Beck and colleagues, with an educational susan from [employer]. Review of Systems Const Denies chills, Denies fatigue, Denies fever(s), Denies headache(s) and Denies weakness ENT Denies dizziness and Denies headache(s) Card Denies dyspnea Resp Denies cough, Denies dyspnea, Denies wheezing and Denies other (shortness of breath) Musc Denies numbness and Denies tingling Neuro Denies dizziness, Denies headache(s), Denies numbness, Denies tingling and Denies weakness Psych Denies anxiety and Denies depression Endo Denies fatigue Aller/Immun Denies wheezing Physical exam (Primary Care) Vital Signs: Last Vital Signs Pulse 72 02/05/24 16:39 BP 100/62 02/05/24 16:39 Pulse Ox 100 02/05/24 16:39 Oxygen Delivery Method Room Air 02/05/24 16:39 BMI result Body Mass Index 26.7 Tobacco/Smoking Status: Tobacco use Status Tobacco use date assessed 01/02/24 02/05/24 16:38 Patient Tobacco Use Status Never used Tobacco 02/05/24 16:38 e-Cigarette/Vaping Use Never Used 02/05/24 16:38 Thrive Assessment: Date of Thrive Assessment Date Thrive assessed 08/31/22 02/05/24 16:38 Const General: well developed; No acute distress Nutritional Appearance: well nourished Orientation/consciousness: patient oriented x3 [facility] Head: Yes normocephalic and Yes atraumatic Eyes General: appearance normal, both eyes and all related structures Pupils: Equal, round and reactive pupils present EOM: EOMs intact bilaterally Resp Effort & Inspection: normal respiratory effort Neuro General: patient oriented x3 and gait normal Cranial nerves: Yes Equal, round and reactive pupils present Psych Affect: normal affect Assessment and Plan Assessment & Plan (1) Cervical radiculopathy: Code(s): M54.12 - Radiculopathy, cervical region Plan: Ongoing?right?neck?and?shoulder?pain?with?imaging?showing?C5-6?foraminal?stenosis?with?nerve?encroachment. Ortho?had?ordered?physical?therapy but?patient?has?not?been?able?to?start?this?yet.??I?have?ordered?this?again?today?for?her. Prednisone?helped?and?I?am?giving?her?a?10?day?taper. She?should?start?physical?therapy?and?she?can?use?NSAIDs?that?she?tolerates?such?as?ibuprofen?or?naproxen. Was?not?able?to?tolerate?meloxicam?or?celecoxib. Follow-up?with?[facility]?and?we?discussed?that?she?may?benefit?from?injection?therapy. I?am?filling?out?her?FMLA?paperwork?to?reduce?work?hours?to?two?8?hour?days?per?week Her?employer?is?getting?an?ergonomic?evaluation?at?my?request?from?prior?visit. Orders: Orders PT Evaluation and Treatment Today M54.12 - Radiculopathy, cervical region Medications: New prednisone 4 tabs daily for 4 days, 3 tabs daily for 2 days, 2 tabs daily for 2 days, 1 tab daily for 2 days PO daily; 10 days 28 tabs 0RF M54.12 - Radiculopathy, cervical region Coding Level of Care Code Est Pt Level 3 (08631) Diagnoses Cervical radiculopathy M54.12
[2024-02-05 16:39] VITALS: BP 100/62; PULSE 72; O2SAT 100; BMI 26.7
== END 2024-02-05 16:40 | disposition home or self-care (01) ==
PROVIDERS: PCP Family Medicine; Visit Provider Family Medicine
DX: M54.12 Radiculopathy, cervical region (principal)
CPT/HCPCS: 99213

== ENCOUNTER 2024-03-10 15:53 | Outpatient (REF) | payer OTHER, SELFPAY ==
--- NOTE | ~2024-03-10 | MM_ITS ---
EXAMINATION: MM SCREENING DIGITAL BREAST TOMOSYNTHESIS, BILATERAL CLINICAL INFORMATION: Screening. Asymptomatic. COMPARISON: Mammography: This study is compared with prior exams dating back to 2018. TECHNIQUE: Digital breast tomosynthesis is performed in both the craniocaudal and mediolateral oblique views along with computer-aided detection (CAD). Synthesized 2D images are generated from the tomosynthesis. FINDINGS: The breasts are heterogeneously dense, which may obscure small masses (ACR BI-RADS breast composition Category c). There are no significant masses, abnormal calcifications, or other abnormalities. MM/MM tomosynthesis screening BI IMPRESSION: No mammographic evidence of malignancy. ASSESSMENT: BI-RADS BI-RADS 1 - Negative RECOMMENDATION: Routine annual mammography screening. 1 year F/U This examination should not preclude the clinical evaluation of a suspicious palpable abnormality. This patient's information was entered into a reminder system with a target due date for their next mammogram. Electronically signed by: Amy Newby MD 04/03/2024 08:38 PM EDT
== END 2024-03-10 15:54 | disposition home or self-care (01) ==
LOC: HO.MAMMO 15:53
PROVIDERS: PCP Family Medicine; Visit Provider Family Medicine
DX: Z12.31 Encounter for screening mammogram for malignant neoplasm of breast (principal)
CPT/HCPCS: 77063; 77067

== ENCOUNTER → 2024-03-10 16:00 | Outpatient (BNV) | payer OTHER, SELFPAY | PROVIDERS: PCP Family Medicine; Visit Provider Radiology Diagnostic Radiology | DX: Z12.31 Encounter for screening mammogram for malignant neoplasm of breast (principal) | CPT/HCPCS: 77063; 77067 ==

== ENCOUNTER 2024-04-08 11:56 | Outpatient (AMB) | payer OTHER, SELFPAY ==
--- NOTE | 2024-04-08 12:01 | A.OFFPC_ITS ---
Vital Signs 04/08/24 12:03 Height 5 ft 3 in Weight 147 lb BMI 26.0 BP 90/60 Blood Pressure Location Lt brachial Position Sitting Respiration 12 Pulse 67 Pulse Source Pulse Oximeter Pulse Oximetry (%) 99 Oxygen Delivery Method Room Air Intake Visit Reasons: fmla paperwork Intake Note: FMLA paperwork. Was dropped of on 03/27/24. Allergies No Known Allergies Allergy (Verified 04/08/24 12:02) Tobacco use date assessed: 01/02/24 Dental Screening Dental Screen Date: 09/28/23 HPI fmla paperwork HPI Details 53 y/o female presents to f/u cervical r adiculopathy with R neck and shoulder pain. Also here for FMLA paperwork. She notes she has only been taking gabapentin 300mg at night. PFS Medical History Tubular adenoma Epilepsy Migraine Surgical History History of arthroscopy of right shoulder Family History Father History of stroke History of diabetes mellitus Mother History of asthma HTN (hypertension) Osteoarthritis Sister Vestibular vertigo Sister Vertigo, central Son No problems noted. Son No problems noted. Daughter No problems noted. Social History Household Members: Family Housing: House 75 years or older and lives alone: No Alcohol intake: never Patient Tobacco Use Status: Never used Tobacco e-Cigarette/Vaping Use: Never Used Substance Use Type: Marijuana service: No Current occupational status: employed Cognitive needs: No Hearing needs: No Vision needs: No Female Reproductive History Menstrual Age of Menarche: 13 Questionnaire Thrive Questionnaire Date Thrive assessed: 08/31/22 KIMBERLY-7 AMB Questionnaire KIMBERLY-7 Date KIMBERLY - 7 assessed: 01/02/24 Source: Developed by Drs. Siva Alcantar, Cecilia Llanes, Isra Beck and colleagues, with an educational susan from [employer]. Review of Systems Const Denies chills, Denies fatigue, Denies fever(s), Denies headache(s) and Denies weakness ENT Denies dizziness, Denies headache(s) and Reports neck pain Card Denies dyspnea Resp Denies cough, Denies dyspnea, Denies wheezing and Denies other (shortness of breath) Musc Reports neck pain, Denies numbness and Denies tingling Neuro Denies dizziness, Denies headache(s), Denies numbness, Denies tingling and Denies weakness Psych Denies anxiety and Denies depression Endo Denies fatigue Aller/Immun Denies wheezing Physical exam (Primary Care) Vital Signs: Last Vital Signs Pulse 67 04/08/24 12:03 Resp 12 04/08/24 12:03 BP 90/60 04/08/24 12:03 Pulse Ox 99 04/08/24 12:03 Oxygen Delivery Method Room Air 04/08/24 12:03 BMI result Body Mass Index 26.0 Tobacco/Smoking Status: Tobacco use Status Tobacco use date assessed 01/02/24 04/08/24 12:01 Patient Tobacco Use Status Never used Tobacco 04/08/24 12:01 e-Cigarette/Vaping Use Never Used 04/08/24 12:01 Thrive Assessment: Date of Thrive Assessment Date Thrive assessed 08/31/22 04/08/24 12:01 Const General: well developed; No acute distress Nutritional Appearance: well nourished Orientation/consciousness: patient oriented x3 HENMT Head: Yes normocephalic and Yes atraumatic Eyes General: appearance normal, both eyes and all related structures Pupils: Equal, round and reactive pupils present EOM: EOMs intact bilaterally Resp Effort & Inspection: normal respiratory effort Auscultation: clear to auscultation bilaterally Cardio Rate: regular rate Rhythm: regular rhythm Heart sounds: S1 normal heart sound present, S2 normal heart sound present, no gallops, no murmurs and no rubs Neuro General: patient oriented x3 and gait normal Cranial nerves: Yes Equal, round and reactive pupils present Psych Affect: normal affect Assessment and Plan Assessment & Plan (1) Cervical radiculopathy: Code(s): M54.12 - Radiculopathy, cervical region Plan: Ongoing?and?severe?cervical?radiculopathy?with?neck?pain?and?radiation?into?shou lder,?elbow?and?right?wrist/hand. Cervical?MRI?showed: C5-C6 with severe right and moderate left neuroforaminal narrowing. Reschedule?physical?therapy?but?has?this?coming?up?this?month Has?been?referred?to?orthopedics?and?has?an?appointment?with?them March?. Filled?out?FMLA?paperwork?for?patient?to?have?intermittent?leave?up?to?twice?per ?week?at?8?hours?per?day x 1 year. Will?give?her?a?short?course?of?prednisone Give?her?a?script?for?naproxen?thereafter Will?increase?her?gabapentin f/u in 1 month Medications: New naproxen 500 mg PO BID 30 days PRN 60 tabs 3RF pain prednisone 40 mg (2 x 20 mg) PO DAILY 4 days 8 tabs 0RF Changed From gabapentin 300 mg PO BID 30 days 60 caps 1RF To gabapentin 1 cap in AM, 2 caps at bedtime orally 2 times a day; 30 days 90 caps 2RF Coding Level of Care Code Est Pt Level 3 (38978) Diagnoses Cervical radiculopathy M54.12
[2024-04-08 12:03] VITALS: BP 90/60; PULSE 67; RESP 12; O2SAT 99; BMI 26.0
== END 2024-04-08 14:56 | disposition home or self-care (01) ==
PROVIDERS: PCP Family Medicine; Visit Provider Family Medicine
DX: M54.12 Radiculopathy, cervical region (principal)
CPT/HCPCS: 99213

== ENCOUNTER 2024-10-30 09:22 | Outpatient (AMB) | payer OTHER, SELFPAY ==
--- NOTE | 2024-10-30 09:29 | A.OFFPC_ITS ---
Vital Signs 10/30/24 09:38 Height 5 ft 3 in Weight 139 lb 4 oz BMI 24.7 BP 90/62 Blood Pressure Location Lt brachial Position Sitting Respiration 16 Pulse 69 Pulse Source Pulse Oximeter Temp 98.5 F Temp Source Oral Pulse Oximetry (%) 99 Oxygen Delivery Method Room Air Intake Visit Reasons: f/u for cervical radiculopathy Intake Note: patient is scheduled for cervical radiculopathy follow up Database Tester Required: No Allergies No Known Allergies Allergy (Verified 10/30/24 09:34) Medication List - Last Reconciled 10/30/24 by Cesar Chavez MD calcium polycarbophil (FiberCon) 625 mg PO DAILY 30 days celecoxib 200 mg PO BID PRN 30 days gabapentin 1 cap in AM, 2 caps at bedtime orally 2 times a day; 30 days levonorgestrel (Mirena) intrauterine Tobacco use date assessed: 01/02/24 Dental Screening Dental Screen Date: 09/28/23 HPI f/u for cervical radiculopathy HPI Details 54 y/o female presents to f/u cervical r adiculopathy with R arm pain. She has an appointment with Ortho April 15 so we will review recommendations from ortho. I have increased her gabapentin and added naproxen. She notes she had seen ortho in April. She reports they had recommended physical therapy and injection therapy. She declines injection therapy for now. She notes she is managing pain with medications. She reports ongoing hypersomnia. [facility] Medical History Tubular adenoma Epilepsy Migraine Surgical History History of arthroscopy of right shoulder Family History Father History of stroke History of diabetes mellitus Mother History of asthma HTN (hypertension) Osteoarthritis Sister Vestibular vertigo Sister Vertigo, central Son No problems noted. Son No problems noted. Daughter No problems noted. Social History Household Members: Family Housing: House 75 years or older and lives alone: No Alcohol intake: never Patient Tobacco Use Status: Never used Tobacco e-Cigarette/Vaping Use: Never Used Substance Use Type: Marijuana service: No Current occupational status: employed Cognitive needs: No Hearing needs: No Vision needs: No Female Reproductive History Menstrual Age of Menarche: 13 Questionnaire PHQ-9 Over the last 2 weeks, how often have you been bothered by any of the following problems? 1. Little interest or pleasure in doing things: not at all 2. Feeling down, depressed, or hopeless: not at all 3. Trouble falling or staying asleep, or sleeping too much: not at all 4. Feeling tired or having little energy: not at all 5. Poor appetite or overeating: not at all 6. Feeling bad about yourself - or that you are a failure or have let yourself or your family down: not at all 7. Trouble concentrating on things, such as reading the newspaper or watching television: several days 8. Moving or speaking so slowly that other people could have noticed. Or the opposite - being so fidgety or restless that you have been moving around a lot more than usual: not at all 9. Thoughts that you would be better off or of hurting yourself in some way: not at all Total score: 1 Depression Screening Interpretation: Negative Depression Screening Done: Yes 52055 - PHQ-9 Billing: Yes Source: Developed by Drs. Siva Alcantar, Cecilia Llanes, Isra Beck and colleagues, with an educational susan from [employer]. Thrive Questionnaire Date Thrive assessed: 10/30/24 I am a: Patient What is your living situation today?: I have a steady place to live Within the past 12 months, did the food you bought not last and you didn't have the money to get more?: Never true Within the past 12 months, did you worry whether your food would run out before you got money to buy more?: Never true Do you have trouble paying for medicines?: No Do you have trouble getting transportation to medical appointments?: No Do you have trouble paying your heating and electricity bill?: No Do you have trouble taking care of your child, family member or friend?: No Do you have trouble with day-to-day activities such as bathing, preparing meals, shopping, managing finances, etc.?: No Are you currently unemployed and looking for a job?: No Are you interested in more education?: No Please select the resources that you would like help with: None Currently or been in a relationship where the following occur: No concerns reported THRIVE Score: 0 AUDIT C Alcohol Use Questionnaire (AUDIT-C) 1. How often do you have a drink containing alcohol?: Never 3. How often do you have six or more drinks on one occasion?: Never Total Score: 0 Score Reviewed/Action Taken: Yes KIMBERLY-7 AMB Questionnaire KIMBERLY-7 Date KIMBERLY - 7 assessed: 10/30/24 Feeling nervous, anxious, or on edge: 0 = Not at all Not being able to stop or control worryin = Not at all Worrying too much about different things: 0 = Not at all Trouble relaxin = Not at all Being so restless that it is hard to sit still: 0 = Not at all Becoming easily annoyed or irritable: 0 = Not at all Feeling afraid as if something awful might happen: 0 = Not at all Total KIMBERLY-7 score (0-4 normal; 5-9 mild; 10-14 moderate; 15-21 severe): 0 Source: Developed by Drs. Siva Alcantar, Cecilia Llanes, Isra Beck and colleagues, with an educational susan from [employer]. KIMBERLY-7 Assessment Billing KIMBERLY-7 Assessment Tool: KIMBERLY-7 Assessment 40081 Review of Systems Const Denies chills, Denies fatigue, Denies fever(s), Denies headache(s) and Denies weakness ENT Denies dizziness and Denies headache(s) Card Denies dyspnea Resp Denies cough, Denies dyspnea, Denies wheezing and Denies other (shortness of breath) GI Reports constipation Musc Denies numbness and Denies tingling Neuro Denies dizziness, Denies headache(s), Denies numbness, Denies tingling and Denies weakness Psych Denies anxiety and Denies depression Endo Denies fatigue Aller/Immun Denies wheezing Physical exam (Primary Care) Vital Signs: Last Vital Signs Temp 98.5 F 10/30/24 09:38 Pulse 69 10/30/24 09:38 Resp 16 10/30/24 09:38 BP 90/62 10/30/24 09:38 Pulse Ox 99 10/30/24 09:38 Oxygen Delivery Method Room Air 10/30/24 09:38 BMI result Body Mass Index 24.7 Tobacco/Smoking Status: Tobacco use Status Tobacco use date assessed 01/02/24 10/30/24 09:43 Patient Tobacco Use Status Never used Tobacco 10/30/24 09:43 e-Cigarette/Vaping Use Never Used 10/30/24 09:43 PHQ-9: PHQ-9 Score PHQ-9: Total score 1 10/30/24 10:01 Depression Screening Interpretation: Negative Thrive Assessment: Date of Thrive Assessment Date Thrive assessed 10/30/24 10/30/24 09:43 Currently or been in a relationship where the following occur: No concerns reported Const General: well developed; No acute distress Nutritional Appearance: well nourished Orientation/consciousness: patient oriented x3 HENMT Head: Yes normocephalic and Yes atraumatic Eyes General: appearance normal, both eyes and all related structures Pupils: Equal, round and reactive pupils present EOM: EOMs intact bilaterally Resp Effort & Inspection: normal respiratory effort Auscultation: clear to auscultation bilaterally Cardio Rate: regular rate Rhythm: regular rhythm Heart sounds: S1 normal heart sound present, S2 normal heart sound present, no gallops, no murmurs and no rubs Neuro General: patient oriented x3 and gait normal Cranial nerves: Yes Equal, round and reactive pupils present Psych Affect: normal affect Coding Level of Care Code Est Pt Level 4 (67361) Diagnoses Cervical radiculopathy M54.12 Radicular pain in right arm M79.2 Hypersomnia G47.10 Constipation K59.00 Additional Codes KIMBERLY-7 Assessment Billing - KIMBERLY-7 Assessment Tool: KIMBERLY-7 Assessment 10820 ([id number]) PHQ-9 - 70134 - PHQ-9 Billing: Yes ([id number]) Assessment & Plan Assessment & Plan (1) Cervical radiculopathy: Code(s): M54.12 - Radiculopathy, cervical region Category: Medical Plan: Ongoing?right-sided?cervical?radiculopathy No?arm?or?hand?weakness. Patient?says?this?is?manageable?however?she?has?been?having?trouble?with?naproxe n?bothering?h er?stomach.??Will?try?celecoxib?and?she?can?use?a?strategy?of?taking?this?for?ab out?4?days?in?a?row?and?then?holding?the?medication?when?symptoms?are?improved. We?discussed?physical?therapy?and?she?wo uld?like?to?hold?off?on?this?for?now?but?will?let?me?know?if/when?she?would?like ?to?proceed?with?that. She?is?already?held?off?on injection?therapy?but?can?follow- up?with?her?orthopedic?specialist[facility]at [facility] if?needed. Also?advised?ice/heat Gentle?stretching (2) Radicular pain in right arm: Code(s): M79.2 - Neuralgia and neuritis, unspecified Category: Medical Plan: As?above (3) Hypersomnia: Code(s): G47.10 - Hypersomnia, unspecified Category: Medical Plan: Consistent?daytime?sleepiness Referred?to?Sleep?Medicine (4) Constipation: Code(s): K59.00 - Constipation, unspecified Category: Medical Plan: Chronic?constipation Increase?hydration Soluble?fiber?tablet She?says?she?has?an?upcoming?colonoscopy?with??[facility]. We can?follow-up?after?this?to?determine?next?steps. Orders: Orders Comprehensive [place]. Panel Fast Today Z00.00 - Encounter for general adult medical examination without abnormal findings Complete Blood Count Auto Diff Today Z00.00 - Encounter for general adult medical examination without abnormal findings Lipid Panel Today Z00.00 - Encounter for general adult medical examination without abnormal findings TSH reflex Free T4 Today Z00.00 - Encounter for general adult medical examination without abnormal findings UA CC w/rflx Micro + Cult Today Z00.00 - Encounter for general adult medical examination without abnormal findings Microalbumin, Random (w Creat) Today I10 - Essential (primary) hypertension Referrals Sleep Medicine Referral R40.0 - Somnolence Medications: New celecoxib 200 mg PO BID 30 days PRN 60 caps 2RF pain calcium polycarbophil (FiberCon) 625 mg PO DAILY 30 days 30 tabs 2RF Refilled gabapentin 1 cap in AM, 2 caps at bedtime orally 2 times a day; 30 days 90 caps 2RF Discontinued naproxen Discontinued Reason: Doctor's Order 500 mg PO BID 30 days PRN 60 tabs 3RF pain
[2024-10-30 09:38] VITALS: BP 90/62; PULSE 69; RESP 16; TEMP 36.9; O2SAT 99; BMI 24.7
== END 2024-10-30 10:19 | disposition home or self-care (01) ==
LOC: HO.HMCFM 09:23
PROVIDERS: PCP Family Medicine; Visit Provider Family Medicine
DX: M54.12 Radiculopathy, cervical region (principal); G47.10 Hypersomnia, unspecified; K59.00 Constipation, unspecified

== ENCOUNTER → 2024-10-30 09:22 | Outpatient (BNVA) | payer OTHER, SELFPAY | PROVIDERS: PCP Family Medicine; Visit Provider Family Medicine | DX: M54.12 Radiculopathy, cervical region (principal); G47.10 Hypersomnia, unspecified; K59.09 Other constipation | CPT/HCPCS: 96127 ==

== ENCOUNTER 2024-11-13 15:19 | Outpatient (AMB) | payer OTHER, SELFPAY ==
--- NOTE | 2024-11-13 15:21 | MHC.OFFVIS ---
Vital Signs 11/13/24 15:28 Height 5 ft 3 in Weight 136 lb BMI 24.1 BP 107/63 Blood Pressure Location Rt brachial Position Sitting Pulse 77 Intake Visit Reasons: Colonoscopy screening Intake Note: Patient referred for Colonoscopy screening. Patient c/o: denies constipation, diarrhea. No hx of hemorrhoids. Colonoscopy: Dr. 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 Her last colonoscopy was in [address] Plasencia. She says a polyp was removed. She says that she was told to have a colonoscopy again within 5 years. She admits to constipation but denies any other GI complaints She denies any family history of colon cancer. COUNTS INCLUDE 234 BEDS AT THE [facility] Medical History Tubular adenoma Epilepsy Migraine Surgical History History of arthroscopy of right shoulder Family History Father History of stroke History of diabetes mellitus Mother History of asthma HTN (hypertension) Osteoarthritis Sister Vestibular vertigo Sister Vertigo, central Son No problems noted. Son No problems noted. Daughter No problems noted. Social History Household Members: Family Housing: House 75 years or older and lives alone: No Alcohol intake: never Patient Tobacco Use Status: Never used Tobacco e-Cigarette/Vaping Use: Never Used Substance Use Type: Marijuana service: No Current occupational status: employed Cognitive needs: No Hearing needs: No Vision needs: No Female Reproductive History Menstrual Age of Menarche: 13 Review of Systems Const Denies chills and Denies fever(s) Card Denies chest pain, Denies dyspnea and Denies dyspnea on exertion Resp Denies cough, Denies dyspnea and Denies dyspnea on exertion GI Denies hematochezia and Denies change in bowel habits Denies hematuria Musc Denies back pain and Denies limited range of motion Neuro Denies focal weakness and Denies convulsions Psych Denies depression and Denies mood swings Physical Exam Vital Signs: Last Vital Signs Pulse 77 11/13/24 15:28 BP 107/63 11/13/24 15:28 BMI result Body Mass Index 24.1 Const General: comfortable and no acute distress Orientation/consciousness: patient oriented x3 Neck Neck: Yes no lymphadenopathy Resp Auscultation: clear to auscultation bilaterally Cardio Rhythm: regular rhythm GI Palpation (GI): Soft to palpation, nontender and no guarding Neuro General: patient oriented x3 Assessment & Plan Assessment & Plan (1) Screen for colon cancer: Code(s): Z12.11 - Encounter for screening for malignant neoplasm of colon Category: Medical Plan: I explained to her the technique of colonoscopy for screening. I reviewed the risks including but not limited to bleeding and perforation, as well as the benefits and alternatives. She understands and agrees to proceed. Medications: New sodium,potassium,mag sulfates 17.5-3.13-1.6 gram (Suprep Bowel Prep Kit) DILUTE; drink full amount early evening before AND next morning at least 2 hr before procedure; follow w 960 mL water PO 354 mL 0RF docusate sodium (Colace) 100 mg PO BID 60 caps 3RF psyllium seed (sugar) (Metamucil (sugar) oral powder) 1 tbsp PO DAILY 1,254 grams 2RF Coding Level of Care Code New Pt Level 3 (59561) Diagnoses Screen for colon cancer Z12.11
[2024-11-13 15:28] VITALS: BP 107/63; PULSE 77; BMI 24.1
--- OUTSIDE RECORDS SUMMARY | 2024-11-13 18:01 | XMS_ITS | Continuity of Care Document ---
Author Organization [facility] Address [address] [facility] [address] [place] [phone] Phone Care Team Providers Care Telephonic Nurse Name Role Phone Pedrito Cormier Unavailable Unavailable Procedures Procedure Date PT Did Not Receive Services PT Did Not Receive Services Advance Directives Directive Yes / No Effective Date File Name No Information Encounters Encounter Description Practice Location Reason(s) For Visit Diagnoses Date Provider Providers Copied on Encounter [facility], [address] [facility] [address], [place], [place], [id number], tel:[phone] [facility] - [place] No Information Genia Major. [address], [address], [place], [address], . tel:[phone] Referring Provider: Pedrito Hopper, [address], [place], [address]. tel:[phone] [facility], [address] [facility] [address], [place], [place], [id number], tel:[phone] [facility] - [facility] No Information Genia Major. [address], [address], [place], [address], . tel:[phone] Referring Provider: Pedrito Hopper, [address], [place], [address]. tel:[phone] Family History Family Member Type Diagnosis Age At Onset No Information Payers Payer name Insurance type Covered libertarian ID Nasra bauer(s) [facility] [id number] Social History Type Description Quantity Date Captured Comments Sex Female Smoking Status No Information Chief Complaint And Reason For Visit No Information Reason For Referral Reason For Referral No Information History Of Present Illness Encounter Date Complaint History Of Prese nt Illness No Information Functional Status Date Functional Assessmen t No Information Instructions Date Instruction Additional Infor mation No Information Assessments Type Assessment Date No Information Patient Care Teams Name Effective Dates (start - stop) Status Members No Information
== END 2024-11-13 15:38 | disposition home or self-care (01) ==
LOC: HO.HGS 15:20
PROVIDERS: PCP Family Medicine; Visit Provider Surgery
DX: Z12.11 Encounter for screening for malignant neoplasm of colon (principal)
CPT/HCPCS: 99203

== ENCOUNTER 2024-12-06 08:04 | Outpatient (REF) | payer OTHER, SELFPAY ==
[2024-12-06 08:18] LABS: MANUAL DIFF FLAG NO
[2024-12-06 09:12] LABS: Basophils Percent Auto 0.6 % (0-2); Eosinophils Absolute Auto 0.1 X10*3/uL (0.0-0.4); Eosinophils Percent Auto 2.3 % (0-4); Hematocrit 37.8 % (37.0-47.0); Hemoglobin 12.8 g/dl (12.0-16.0); Imm Gran Abs Auto 0.01 X10*3/uL (0.00-0.03); Imm Gran Pct Auto 0.2 % (0.0-0.4); Lymphocytes Percent Auto 41.4 % (20-40); Mean Corpuscular HGB Conc 33.9 g/dl (31.0-35.0); Mean Corpuscular Hemoglobin 29.8 pg (27.0-33.0); Mean Corpuscular Volume 87.9 fL (80.0-98.0); Mean Platelet Volume 10.6 fL (9.4-12.3); Monocytes Absolute Auto 0.3 X10*3/uL (0.1-1.2); Monocytes Percent Auto 6.9 % (2-11); Neutrophils Absolute Auto 2.3 x10*3/uL (2.0-8.3); Neutrophils Percent Auto 48.6 % (45-73); Platelet Count 253 X10*3/uL (160-400); Red Cell Distribution Width 14.3 % (11.0-16.0); White Blood Count 4.8 X10*3/uL (4.8-10.8)
[2024-12-06 09:14] LABS: Appearance Urine Cloudy; Color Urine Yellow; Glucose Urine UA Negative (Negative); Leukocyte Esterase Urine Moderate (2+) (Negative); Nitrite Urine Negative (Negative); PH 8.5 (5.0-9.0); Specific Gravity - Urine 1.015 (1.005-1.025); UMIC TRIGGER UA YES; UMIC TRIGGER UACC YES; Urine Blood Negative (Negative); Urine Ketones Negative (Negative); Urine Protein Negative (Neg-Trace)
[2024-12-06 09:20] LABS: Bacteria Urine 1+ (None Seen); Hyaline Casts Urine 0-2 /LPF (0-2); RBC Urine 0-2 /HPF (0-2); UACC Culture Trigger YES
[2024-12-06 09:59] LABS: Alanine Aminotransferase 10 U/L (0-31); Alkaline Phosphatase 63 U/L (39-117); Anion Gap 12 (12-20); Aspartate Amino Transferase 12 U/L (5-31); Bilirubin Total 0.8 mg/dL (0.0-1.0); Blood Urea Nitrogen 7 mg/dL (9-16); Calcium 9.1 mg/dL (8.4-10.2); Carbon Dioxide 29 mmol/L (22-29); Chloride 107 mmol/L (96-108); Cholesterol 155 mg/dL (<200); Estimated Glomerular Filt Rate > 60; Glucose Fasting 88 mg/dL (60-99); HDL Cholesterol 41 mg/dL (>40); LDL Cholesterol Calculated 98 mg/dL (<100); Potassium 3.8 mmol/L (3.3-5.1); Sodium 144 mmol/L (135-145); Total Protein 6.6 g/dL (6.5-8.0); Triglycerides 84 mg/dL (<150)
[2024-12-06 10:05] LABS: Creatinine Urine 100.69 mg/dL; Microalbumin Urine < 5.0 mg/L
[2024-12-06 10:19] LABS: TSH reflex Free T4 1.95 uIU/mL (0.32-4.0)
== END 2024-12-06 08:05 | disposition home or self-care (01) ==
LOC: HO.LAB 08:04
PROVIDERS: PCP Family Medicine; Visit Provider Family Medicine
DX: Z00.00 Encounter for general adult medical examination without abnormal findings (principal); I10 Essential (primary) hypertension; R30.0 Dysuria
CPT/HCPCS: 36415; 80053; 80061; 81001; 81003; 82043; 82570; 84443; 85025; 87086

== ENCOUNTER 2024-12-12 10:21 | Outpatient (AMB) | payer OTHER, SELFPAY ==
--- NOTE | 2024-12-12 10:23 | A.OFFPC_ITS ---
Vital Signs 12/12/24 10:28 Height 5 ft 3 in Weight 141 lb 8 oz BMI 25.1 BP 96/61 Blood Pressure Location Rt brachial Position Sitting Respiration 12 Pulse 72 Pulse Source Pulse Oximeter Temp 97.0 F Temp Source Temporal Artery Scan Pulse Oximetry (%) 96 Oxygen Delivery Method Room Air Intake Visit Reasons: f/u labs, constipation Intake Note: Follow up on labs and constipation. Patient also c/o vertigo that lasted a week long last week. 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 Allergies No Known Allergies Allergy (Verified 12/12/24 10:24) Medication List - Last Reconciled 12/12/24 by Cesar Chavez MD calcium polycarbophil (FiberCon) 625 mg PO DAILY 30 days celecoxib 200 mg PO BID PRN 30 days docusate sodium (Colace) 100 mg PO BID gabapentin 1 cap in AM, 2 caps at bedtime orally 2 times a day; 30 days levonorgestrel (Mirena) intrauterine psyllium seed (sugar) (Metamucil (sugar) oral powder) 1 tbsp PO DAILY sodium,potassium,mag sulfates 17.5-3.13-1.6 gram (Suprep Bowel Prep Kit) DILUTE; drink full amount early evening before AND next morning at least 2 hr before procedure; follow w 960 mL water PO Tobacco use date assessed: 12/12/24 Dental Screening Dental Screen Date: 12/12/24 Did you have a dental visit in the last 12 months?: Yes Did you have a dental problem in the last 6 months where you did not have access to dental care?: No Was dental information given to patient?: Patient has dentist HPI f/u labs, constipation HPI Details 54 y/o female presents to f/u chronic co nditions. Also following up labs. Had referred to sleep medicine. Labs drawn 12/06/24. Reviewed labs with pt. Triglycerides 84. TC 155. LDL improved from 116 to 98. HDL 41. Has complaints of vertigo x1 week. Reports room spinning sensation when turning her head. Had been following up with a chiropractor. Pt notes constipation has improved. HPI Comments History of Present Illness Details Documentation assistance for Cesar Chavez MD, was provided by Randy Castro,? Field Crop Farmer on 12/12/2024 at 11:11 AM EST. I, Dr. Chavez, have read, observed, and verified documentation. ? PFSH Medical History Tubular adenoma Epilepsy Migraine Surgical History History of arthroscopy of right shoulder Family History Father History of stroke History of diabetes mellitus Mother History of asthma HTN (hypertension) Osteoarthritis Sister Vestibular vertigo Sister Vertigo, central Son No problems noted. Son No problems noted. Daughter No problems noted. Social History Household Members: Family Housing: House 75 years or older and lives alone: No Alcohol intake: never Patient Tobacco Use Status: Never used Tobacco e-Cigarette/Vaping Use: Never Used Substance Use Type: Marijuana service: No Current occupational status: employed Cognitive needs: No Hearing needs: No Vision needs: No Female Reproductive History Menstrual Age of Menarche: 13 Questionnaire PHQ-9 Over the last 2 weeks, how often have you been bothered by any of the following problems? 1. Little interest or pleasure in doing things: not at all 2. Feeling down, depressed, or hopeless: not at all 3. Trouble falling or staying asleep, or sleeping too much: not at all 4. Feeling tired or having little energy: not at all 5. Poor appetite or overeating: not at all 6. Feeling bad about yourself - or that you are a failure or have let yourself or your family down: not at all 7. Trouble concentrating on things, such as reading the newspaper or watching television: not at all 8. Moving or speaking so slowly that other people could have noticed. Or the opposite - being so fidgety or restless that you have been moving around a lot m ore than usual: not at all 9. Thoughts that you would be better off or of hurting yourself in some way: not at all Total score: 0 Depression Screening Interpretation: Negative Depression Screening Done: Yes 50456 - PHQ-9 Billing: Yes Source: Developed by Drs. Siva Alcantar, Cecilia Llanes, Isra Beck and colleagues, with an educational susan from [employer]. Thrive Questionnaire Date Thrive assessed: 12/12/24 I am a: Patient What is your living situation today?: I have a steady place to live Within the past 12 months, did the food you bought not last and you didn't have the money to get more?: Never true Within the past 12 months, did you worry whether your food would run out before you got money to buy more?: Never true Do you have trouble paying for medicines?: No Do you have trouble getting transportation to medical appointments?: No Do you have trouble paying your heating and electricity bill?: No Do you have trouble taking care of your child, family member or friend?: No Do you have trouble with day-to-day activities such as bathing, preparing meals, shopping, managing finances, etc.?: No Are you currently unemployed and looking for a job?: No Are you interested in more education?: No Please select the resources that you would like help with: None Currently or been in a relationship where the following occur: No concerns reported THRIVE Score: 0 AUDIT C Alcohol Use Questionnaire (AUDIT-C) 2. How many drinks containing alcohol do you have on a typical day when you are drinking?: 1 or 2 3. How often do you have six or more drinks on one occasion?: Never Total Score: 0 KIMBERLY-7 AMB Questionnaire KIMBERLY-7 Date KIMBERLY - 7 assessed: 12/12/24 Feeling nervous, anxious, or on edge: 0 = Not at all Not being able to stop or control worryin = Not at all Worrying too much about different things: 0 = Not at all Trouble relaxin = Not at all Being so restless that it is hard to sit still: 0 = Not at all Becoming easily annoyed or irritable: 0 = Not at all Feeling afraid as if something awful might happen: 0 = Not at all Total KIMBERLY-7 score (0-4 normal; 5-9 mild; 10-14 moderate; 15-21 severe): 0 Source: Developed by Drs. Siva Alcantar, Cecilia Llanes, Isra Beck and colleagues, with an educational susan from [employer]. KIMBERLY-7 Assessment Billing KIMBERLY-7 Assessment Tool: KIMBERLY-7 Assessment 50803 Physical exam (Primary Care) Vital Signs: Last Vital Signs Temp 97.0 F 12/12/24 10:28 Pulse 72 12/12/24 10:28 Resp 12 12/12/24 10:28 BP 96/61 12/12/24 10:28 Pulse Ox 96 12/12/24 10:28 Oxygen Delivery Method Room Air 12/12/24 10:28 BMI result Body Mass Index 25.1 Tobacco/Smoking Status: Tobacco use Status Tobacco use date assessed 12/12/24 12/12/24 10:30 Patient Tobacco Use Status Never used Tobacco 12/12/24 10:30 e-Cigarette/Vaping Use Never Used 12/12/24 10:30 PHQ-9: PHQ-9 Score PHQ-9: Total score 0 12/12/24 10:30 Depression Screening Interpretation: Negative Thrive Assessment: Date of Thrive Assessment Date Thrive assessed 12/12/24 12/12/24 10:30 Currently or been in a relationship where the following occur: No concerns reported Coding Level of Care Code Est Pt Level 4 (09066) Diagnoses Constipation K59.00 Vertigo R42 Elevated LDL cholesterol level E78.00 Additional Codes KIMBERLY-7 Assessment Billing - KIMBERLY-7 Assessment Tool: KIMBERLY-7 Assessment 25076 ([id number]) PHQ-9 - 50668 - PHQ-9 Billing: Yes ([id number]) Assessment & Plan Assessment & Plan (1) Constipation: Code(s): K59.00 - Constipation, unspecified Category: Medical Plan: Improved?with?increased?hydration?and?FiberCon Continue?this?regimen (2) Vertigo: Code(s): R42 - Dizziness and giddiness Category: Medical Plan: Patient?experienced?a?room?spinning?sensation?along?with?nausea?when?turning?her ?head. 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 (3) Elevated LDL cholesterol level: Code(s): E78.00 - Pure hypercholesterolemia, unspecified Category: Medical Plan: Lipids?appear?well?controlled Continue?healthy?diet
[2024-12-12 10:28] VITALS: BP 96/61; PULSE 72; RESP 12; TEMP 36.1; O2SAT 96; BMI 25.1
--- OUTSIDE RECORDS SUMMARY | 2024-12-12 10:41 | XMS_ITS | Continuity of Care Document ---
Author Organization [facility] Address [address] [facility] [address] [place] [phone] Phone Care Team Providers Care Laundry Machine Operator Name Role Phone Pedrito Cormier Unavailable Unavailable Procedures Procedure Date PT Did Not Receive Services PT Did Not Receive Services Advance Directives Directive Yes / No Effective Date File Name No Information Encounters Encounter Description Practice Location Reason(s) For Visit Diagnoses Date Provider Providers Copied on Encounter [facility], [address] [facility] [address], [place], [place], [id number], tel:[phone] [facility] - [place] - [place] No Information Genia Major. [address], [place], [address], . tel:[phone] Referring Provider: Pedrito Hopper, [address], [address]. tel:[phone] [facility], [address] [facility] [address], [place], [place], [id number], tel:[phone] [facility] - [facility] No Information Genia Major. [address], [place], [address], . tel:[phone] Referring Provider: Pedrito Hopper, [address], [place], [address]. tel:[phone] Family History Family Member Type Diagnosis Age At Onset No Information Payers Payer name Insurance type Covered constitution party ID Nasra bauer(s) [facility] [id number] Social History Type Description Quantity Date Captured [...]
== END 2024-12-12 12:56 | disposition home or self-care (01) ==
LOC: HO.HMCFM 10:21
PROVIDERS: PCP Family Medicine; Visit Provider Family Medicine
DX: K59.00 Constipation, unspecified (principal); R42 Dizziness and giddiness; E78.00 Pure hypercholesterolemia, unspecified

== ENCOUNTER → 2024-12-12 10:21 | Outpatient (BNVA) | payer OTHER, SELFPAY | PROVIDERS: PCP Family Medicine; Visit Provider Family Medicine | DX: K59.00 Constipation, unspecified (principal); R42 Dizziness and giddiness; E78.00 Pure hypercholesterolemia, unspecified | CPT/HCPCS: 96127 ==

== ENCOUNTER 2025-01-02 06:44 | Day surgery (SDC) | payer OTHER, SELFPAY ==
[2024-12-31 11:35] VITALS: BMI 24.1
--- NOTE | 2025-01-01 09:44 | HO.ANESPROP2 ---
Documented by User: Carley Box NP 01/01/25 09:46 HPI - Anesthesia Eval Consult details Narrative: 54yo F for Colonoscopy, possible polypectomy PMFSH Active Problems Active Problems: All Active Problems Vertigo (Acute) Constipation (Acute) Cervical radiculopathy (Acute) Screening for cervical cancer (Acute) Mild depression (Acute) Cervicalgia (Acute) Elevated LDL cholesterol level (Acute) Radicular pain in right arm (Acute) Right forearm pain (Acute) Hypersomnia (Acute) Low HDL (under 40) (Acute) Low blood pressure reading (Acute) Fatigue (Acute) Chest pain (Acute) Breast cancer screening by mammogram (Acute) Adult general medical exam (Acute) Forearm tendonitis (Acute) Carpal tunnel syndrome (Acute) Wrist pain (Acute) Ganglion cyst (Acute) Daytime sleepiness (Acute) Family history of Alzheimer's disease (Acute) Memory changes (Acute) Hordeolum of right eye (Acute) Right knee pain (Acute) Tubular adenoma (Acute) Screen for colon cancer (Acute) Past Medical History Medical History (Updated 01/02/25 @ 07:19 by Mary Lou Montes RN) Low blood pressure Tubular adenoma Epilepsy Migraine Family History Family History Father History of stroke History of diabetes mellitus Mother History of asthma HTN (hypertension) Osteoarthritis Sister Vestibular vertigo Sister Vertigo, central Son No problems noted. Son No problems noted. Daughter No problems noted. Surgical History Surgical History History of arthroscopy of right shoulder Social History Social History (Updated 01/02/25 @ 07:10 by Mary Lou Montes RN) Household Members: Family Housing: House Alcohol intake: never Patient Tobacco Use Status: Never used Tobacco e-Cigarette/Vaping Use: Never Used Use of substances other than those prescribed or required for medical reasons: No Have you been hit, kicked, punched, or otherwise hurt by someone within the past year? If so, by whom?: No Are you DNR?: No Advance Directives: No Advance Directives Information Provided: Yes Patient : No service: No Current occupational status: employed Cognitive needs: No Hearing needs: No Vision needs: No Meds Allergies Allergy/AdvReac Type Severity Reaction Status Date / Time No Known Allergies Allergy Verified 12/12/24 10:24 Exam Height,Weight and Vital Signs: Height 5 ft 3 in Weight 61.689 kg Pertinent Lab Results Pertinent Lab Results: Laboratory Tests 12/06/24 08:16 WBC 4.8 Hgb 12.8 Hct 37.8 Plt Count 253 Sodium 144 Potassium 3.8 Chloride 107 Carbon Dioxide 29 BUN 7 L Creatinine 0.71 Assessment and Plan Assessment Anesthesia Assessment: Chart Reviewed Documented by User: John Alfredo MD 01/02/25 08:38 PMF Past Medical History Medical History (Updated 01/02/25 @ 07:19 by Mary Lou Montes RN) Low blood pressure Tubular adenoma Epilepsy Migraine Family History Family History Father History of stroke History of diabetes mellitus Mother History of asthma HTN (hypertension) Osteoarthritis Sister Vestibular vertigo Sister Vertigo, central Son No problems noted. Son No problems noted. Daughter No problems noted. Family history of problems with anesthesia: No Surgical History Surgical History History of arthroscopy of right shoulder History of Problems with Anesthesia: No Social History Social History (Updated 01/02/25 @ 07:10 by Mary Lou Montes RN) Household Members: Family Housing: House Alcohol intake: never Patient Tobacco Use Status: Never used Tobacco e-Cigarette/Vaping Use: Never Used Use of substances other than those prescribed or required for medical reasons: No Have you been hit, kicked, punched, or otherwise hurt by someone within the past year? If so, by whom?: No Are you DNR?: No Advance Directives: No Advance Directives Information Provided: Yes Patient : No service: No Current occupational status: employed Cognitive needs: No Hearing needs: No Vision needs: No Meds Allergies Allergy/AdvReac Type Severity Reaction Status Date / Time No Known Allergies Allergy Verified 12/12/24 10:24 Exam Airway Mallampati Class: II TM Dist: >3cm Neck ROM: Full Loose/Missing/Broken Teeth: No Heart: ok Lungs: ok Assessment and Plan Assessment Anesthesia Assessment: Anesthesia Plan Discussed Final Anesthetic Review Family History of Problems with Anesthesia: No History of Problems with Anesthesia: No NPO: Yes ASA Class: II Final Preanesthetic Review: No Changes in Pt Med Stat, Meds/Allgs Chart Reviewed, Consent Obtained/Reviewed and Anes Risks/Benef Reviewed Patient Risk: Low Procedure Risk: Low Anesthetic Plan Anesthetic Plan: MAC: and Agree w/ Assess. and Plan Disposition: Standard PACU
[2025-01-02 06:59] VITALS: BP 92/55; PULSE 69; RESP 20; TEMP 36.9; O2SAT 97; BMI 23.5
[2025-01-02] MEDS: Lactated Ringers 1,000 ML 100 ML IVCONT (07:18)
--- NOTE | 2025-01-02 08:18 | MHC.SHP ---
Pre-Procedural Eval Section A - 24 Hr Update-Section A only Date of Service: 01/02/25 Section B - Complete if H&P > 30 days Chief Complaint: Encounter for screening for malignant neoplasm of Details of Present Illness: Had a colonoscopy with Dr. Plasencia 5 years ago and had a polyp removed; she was recommended to have a colonoscopy again in 5 years Relevant Family History (Specify if Yes): No Relevant Social History: None Present Medications: see Short Stay Collaborative assessment Medical History: Significant History (Chronic neck pain, arthritis) Allergies: Allergies Allergy/AdvReac Type Severity Reaction Status Date / Time No Known Allergies Allergy Verified 12/12/24 10:24 Review of Systems Sugical H&P ROS: Negative: Constitution, Cardiovascular and Respiratory Exam Surgical H&P Exam: Normal: Heart, Normal: Lungs and Normal: Abdomen Plan Diagnosis/Plan: Unchanged I have reviewed the history and physical and performed a pertinent physical examination on my patient. No changes have occurred unless specified. Time Spent With Patient Time: Total time managing care of this patient today ____ minutes.
[2025-01-02 09:00] VITALS: BP 104/57; PULSE 82; RESP 16; TEMP 36.1; O2SAT 100
--- NOTE | 2025-01-02 09:00 | P.OP_ITS ---
Operative Note Operative Note Date of Service: 01/02/25 Narrative: Preop diagnosis: History of polyp Postop diagnosis: Normal colonoscopy findings Procedure: Colonoscopy Surgeon: Liam Turk MD The patient is a 54 year old female who had a polyp 5 years ago on colonoscopy and was told to have another colonoscopy within 5 years. She understood the technique of the planned procedure as well as the risks, benefits, and alternatives. The patient was brought to the operating room and placed in left lateral decubitus position under monitored anesthesia care. A surgical time-out was done. A full digital rectal exam was done and this did not reveal any significant anal lesions. The tip of the Olympus colonoscope was gently introduced through the anal orifice advanced with insufflation all the way to the cecum. The cecum was intubated. The cecum was identified by visualization of the ileocecal valve as well as the appendiceal orifice. The cecal mucosa was unremarkable. The scope was gradually withdrawn with careful examination of the entire colonic mucosa being done with scope withdrawal. The patient had adequate bowel prep so it was unlikely that any lesion may have been missed. The rectum was reached and there were no lesions seen. The anal canal was un remarkable. The scope was then withdrawn completely with desufflation The patient tolerated procedure well. There were no immediate complications. She falls at average risk for colon cancer so her next colonoscopy may be in the next 10 years.
[2025-01-02 09:15] VITALS: BP 108/51; PULSE 70; RESP 18; TEMP 36.1; O2SAT 100
== END 2025-01-02 09:58 | disposition home or self-care (01) ==
PROVIDERS: PCP Family Medicine; Visit Provider Surgery
PROC: 0DJD8ZZ Inspection of Lower Intestinal Tract, Via Natural or Artificial Opening Endoscopic (ICD-10-PCS; CPT 45378; principal; 2025-01-02 08:30)
DX: Z12.11 Encounter for screening for malignant neoplasm of colon (principal); Z86.0101 Personal history of adenomatous and serrated colon polyps; K59.00 Constipation, unspecified; G40.909 Epilepsy, unspecified, not intractable, without status epilepticus; G43.909 Migraine, unspecified, not intractable, without status migrainosus; Z79.899 Other long term (current) drug therapy
CPT/HCPCS: 45378; J2003; J2704

== ENCOUNTER → 2025-01-02 06:44 | Outpatient (BNV) | payer OTHER, SELFPAY | PROVIDERS: PCP Family Medicine; Visit Provider Surgery | DX: Z12.11 Encounter for screening for malignant neoplasm of colon (principal); Z86.0100 Personal history of colon polyps, unspecified | CPT/HCPCS: 45378 ==